=== PATIENT | male | born 1975 | race Caucasian/White ===

== ENCOUNTER 2020-10-07 13:13 | Emergency (ER) | payer OTHER, SELFPAY ==
[2020-10-07] VITALS (9 sets, daily range): BP systolic 90–123; BP diastolic 55–81; PULSE 53–65; RESP 16–27; TEMP 36.5–37.1; O2SAT 88–100
--- NOTE | ~2020-10-07 | CT_ITS ---
EXAMINATION: CT ANGIOGRAM OF THE CHEST WITH AND WITHOUT CONTRAST (CT PULMONARY ANGIOGRAM FOR PE) CLINICAL INFORMATION: Reason for Exam sob, elevated dimer, Covid neg COMPARISON: Chest x-ray 10/07/2020. CT chest 05/12/2014 TECHNIQUE: Prior to contrast administration, noncontrast localization images were obtained. Subsequently, multidetector volumetric imaging was performed from the thoracic inlet to below the diaphragms following the administration of 100 mL Omnipaque 350 intravenous contrast. No contrast reaction reported Sagittal, coronal, and MIP oblique sagittal reformatted images were obtained on the CT workstation, uploaded to PACS, and reviewed. This CT examination was performed using dose optimization techniques as appropriate, variously including the following: *Automated exposure control *Adjustment of mA and/or kV according to patient size (this includes techniques or standardized protocols for targeted exams where dose is matched to indication/reason for exam; i.e. extremities or head) *Use of iterative reconstruction technique Total exam dose-length product 325 mGy-cm FINDINGS: QUALITY OF STUDY/CONTRAST BOLUS: Satisfactory. PULMONARY ARTERIES: No central or segmental pulmonary emboli. THORACIC AORTA: No aneurysm or dissection. LUNG: There is bibasilar consolidation with air bronchograms. There are scattered multifocal groundglass and ill-defined alveolar opacities in both lungs in the middle lobe, lingula and upper lobes. Most of the airspace disease is in the lower lobes however. There are multiple calcified and partially calcified nodules in the right upper lobe which are chronic unchanged since CAT scan 05/22/2014. Largest of these is an irregular nodule with faint calcifications measuring 1.3 cm coronal image 56/89. Given the stability since 2014 and the calcification these are benign nodules. PLEURA: No pleural effusion or pneumothorax. MEDIASTINUM: There is mediastinal lymphadenopathy. This is new since 2014. May be reactive to the airspace disease. There are enlarged nodes at the AP window, pretracheal retrovascular space and subcarina measuring up to about 1.5 cm in diameter. The remaining subpleural Normal heart size. No pericardial effusion. . No evidence of septal bowing or right heart strain. CHEST WALL/AXILLA: No axillary or internal mammary lymphadenopathy. OSSEOUS STRUCTURES: No acute or suspicious osseous abnormality. UPPER ABDOMEN: Unremarkable. No reflux of contrast into the hepatic veins to suggest elevated right heart pressures. CT/CT angio chest PE protocol IMPRESSION: 1. No evidence of pulmonary embolism. 2. Multifocal extensive bilateral airspace disease mostly affecting the lower lobes. 3. Multiple benign nodules calcifications lung which have remained unchanged since prior CAT scan 05/12/2014. 4. Mediastinal lymphadenopathy probably reactive to the airspace disease. VTE: negative
--- NOTE | ~2020-10-07 | XR_ITS ---
EXAMINATION: XR CHEST CLINICAL INFORMATION: Dyspnea COMPARISON: 04/12/2019 TECHNIQUE: Frontal view of the chest was obtained. FINDINGS: Cardiac leads overlie the chest. Lung volumes are low. Patchy bilateral airspace opacities are noted. More dense retrocardiac opacity. Small pleural effusions. No pneumothorax. The cardiomediastinal silhouette is within normal limits. XR/XR chest 1V IMPRESSION: Small pleural effusions. Patchy bilateral airspace opacities are nonspecific with more dense retrocardiac opacity. This could be infectious or inflammatory. Edema is less likely.
--- NOTE | 2020-10-07 15:17 | ECG_ITS ---
Test Reason : DYSPNEA Blood Pressure : / mmHG Vent. Rate : 059 BPM Atrial Rate : 059 BPM P-R Int : 148 ms QRS Dur : 106 ms QT Int : 454 ms P-R-T Axes : 022 023 -03 degrees QTc Int : 449 ms Sinus bradycardia Otherwise normal ECG No previous ECGs available Referred By: Generic ED Physician Electronically Signed By:AYDE ARAYA MD
[2020-10-07 15:38] LABS: MANUAL DIFF FLAG NO
[2020-10-07 15:45] LABS: Basophils Percent Auto 0.1 % (0-2); Eosinophils Absolute Auto 0.1 X10*3/uL (0.0-0.4); Eosinophils Percent Auto 0.4 % (0-4); Hematocrit 34.3 % (42-52); Imm Gran Abs Auto 0.07 X10*3/uL (0.00-0.03); Imm Gran Pct Auto 0.6 % (0.0-0.4); Lymphocytes Absolute Auto 2.3 X10*3/uL (1.2-4.9); Lymphocytes Percent Auto 19.3 % (20-40); Mean Corpuscular HGB Conc 32.1 g/dl (31.0-36.0); Mean Corpuscular Hemoglobin 30.3 pg (27.0-33.0); Mean Corpuscular Volume 94.5 fL (80-98); Mean Platelet Volume 10.6 fL (9.4-12.4); Monocytes Absolute Auto 0.6 X10*3/uL (0.1-1.2); Monocytes Percent Auto 5.3 % (2-11); Neutrophils Absolute Auto 8.9 X10*3/uL (2.0-8.3); Neutrophils Percent Auto 74.3 % (45-73); Platelet Count 262 X10*3/uL (160-400); Red Blood Count 3.63 X10*6/uL (4.60-5.80); Red Cell Distribution Width 14.2 % (11.0-16.0)
--- NOTE | 2020-10-07 15:45 | PC.NURSE ---
pt in stretcher, sleeping but easily arousable, diaphoretic, respirations even and unlabored. pt reports feeling sob for a couple of days, ls clear, sating at 97% on 2l. poc obtained at 111. 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
[2020-10-07 16:02] LABS: Lactic Acid 0.9 mmol/L (0.5-2.0)
[2020-10-07 16:05] LABS: Alanine Aminotransferase 47 U/L (0-40); Albumin Level 4.1 g/dL (3.5-5.0); Alkaline Phosphatase 53 U/L (39-117); Anion Gap 15 (12-20); Aspartate Amino Transferase 34 U/L (5-37); Bilirubin Direct 0.2 mg/dL (0.0-0.5); Bilirubin Total 0.4 mg/dL (0.0-1.0); Blood Urea Nitrogen 15 mg/dL (9-16); Calcium 8.4 mg/dL (8.4-10.2); Carbon Dioxide 27 mmol/L (22-29); Chloride 100 mmol/L (96-108); Creatinine Clr Calc Pharmacy 5.1; Estimated Glomerular Filt Rate 42; Glucose Random 102 mg/dL (60-115); Lipase 8 U/L (8-78); Potassium 4.7 mmol/L (3.3-5.1); Sodium 137 mmol/L (135-145); Total Protein 6.7 g/dL (6.5-8.0)
[2020-10-07 16:09] LABS: B Type Natriuretic Peptide 19 pg/mL (<100); Troponin-I High Sensitivity < 3.5 ng/L (<3.5-35.0)
[2020-10-07 16:25] LABS: Procalcitonin 1.43 ng/mL
--- NOTE | 2020-10-07 16:46 | ED_ITS ---
HPI - URI/Sore Throat General Chief Complaint: Upper Respiratory Symptoms Stated Complaint: DIFF BREATHING Time Seen by Provider: 10/07/20 16:32 Source: patient Mode of arrival: ambulatory Limitations: no limitations History of Present Illness HPI Narrative: Patient comes emergency room complaining of cough and shortness of breath for 5 days. Patient states he feels that he have a lot of phlegm, has been taking Mucinex at home with no relief. At night when he is lying down, patient states that the phlegm accumulates and wakes up short of breath coughing and triggers a panic attack. Patient states he lives with his father, he is not sick, no COVID exposures. Patient reports subjective fever, complaining of chills, generalized malaise. Patient denies nausea vomiting or diarrhea. MD elicited complaint: fever and cough Related Data Previous Rx's Medication Instructions Recorded levofloxacin 750 mg PO DAILY #10 tab 10/08/20 Allergies Allergy/AdvReac Type Severity Reaction Status Date / Time aspirin [ASA] AdvReac Mild NAUSEA Unverified 03/25/20 15:09 aspirin Allergy Unknown Uncoded 03/27/17 00:00 Review of Systems Review of Systems: Constitutional : No Weight loss, complaining of subjective fever, chills, complaining of generalized malaise ENT/Mouth : No Hearing loss, No Ear Pain, No Nasal Congestion, No Sinus Pain, No Hoarseness, No sore throat, No Rhinorrhea, No Swallowing Difficulty Eyes: No Eye Pain, No Swelling, No Redness, No Foreign Body, No Discharge, No Vision Changes Cardiovascular : No Chest Pain, No Palpitations Respiratory : Complaining of cough with phlegm, No Wheezing, No Smoke Exposure, occasional shortness of breath with exertion, cough and shortness of breath triggered by phlegm when lying flat at night. Gastrointestinal : No Nausea, No Vomiting, No Diarrhea, No Constipation, No abdominal Pain, No Hematochezia, No Melena Genitourinary : no irregular bleeding, No Dysuria, No Urinary Frequency, No Hematuria, No Urinary Incontinence, No Urgency, No Flank Pain, No Urinary Flow Changes, No Hesitancy Musculoskeletal : No joint pain, No Myalgias, No Joint Swelling Skin : No Skin Lesions, No rash Neuro : No Weakness, No Numbness, No Paresthesias, No Loss of Consciousness, No Dizziness, No Headache Psych : No Anxiety/Panic, No Depression, No SI/HI/AH/VH, No Social Issues, Heme/Lymph: No Bruising, No Bleeding,No Lymphadenopathy Endocrine : No Polyuria, No Polydipsia, No Temperature Intolerance [facility] Past Medical History Medical History Hypoglycemia Substance abuse Surgical History History of tonsillectomy Hx of appendectomy Previous back surgery Social History Social History Smoking Status: Current every day smoker Use of substances other than those prescribed or required for medical reasons: No Advance Directives: No Advance Directives Information Provided: Yes Physical Exam Vital Signs: Vital Signs: Last Vital Signs Temp 97.7 F 10/07/20 20:01 Pulse 57 10/07/20 22:36 Resp 16 10/07/20 22:36 BP 105/58 L 10/07/20 22:36 Pulse Ox 97 10/07/20 22:36 Body Mass Index 2.0 Appearance: Alert. Oriented X3. No acute distress. Eyes: Pupils equal, round and reactive to light. ENT: Pharynx normal. Neck: Normal inspection. Neck supple. No lymph nodes noted. No crepitus CVS: Normal heart rate and rhythm. Pulses normal. Normal S1 and S2 Respiratory: No respiratory distress. Mild bilateral crackles, no wheezing, no rales, oxygen saturation 97% on room air (O2 discontinued) Abdomen: Soft and nontender. No rigidity. No distention. good BS x4 Skin: Skin warm , mildly clammy Extremities: No lower extremity edema. No lower extremity edema. No Lacerations. No Rash Neuro: Oriented X 3. No motor deficit. No sensory deficit. Moving all extermities. No slurred speech. Course Course Course Narrative: By time that I saw the patient, some labs had already resolved and the chest x-ray. Given the patient's symptoms, we will go ahead and start treating for possible pneumonia. D-dimer was elevated, patient was sent for a CT for PE protocol. Results were negative. However, on the CT scan it was noted that the patient has extensive m ultifocal bilateral airspace disease. Patient was walked around the hallway, his oxygen saturation remained 92% and above. COVID test negative. Sepsis is not suspect this time. I discussed with the patient the extent of his pulmonary condition. I asked patient to stay, I also spoke to our hospitalist Dr. Mercado who accepted the patient to the hospitalist inpatient service. Patient is refusing to stay. Overall, patient is stable enough to go home, but it is very likely that patient may decompensate. Therefore, I discussed with the patient that he would be better to keep in the hospital. Patient refused, but he is agreeable to return to the hospital if he has any worsening symptoms. In the hospital, patient received IV fluids and Levaquin. I discussed with the patient that although his COVID test was negative, this could still be COVID. Discussed with the patient to be retested before returning to work. MDM - URI/Sore Throat Lab Data Result diagrams: 10/07/20 15:26 10/07/20 20:00 Labs: Lab Results 10/07/20 10/07/20 10/07/20 Range/Units 15:12 15:26 15:26 WBC 12.0 H (4.8-10.8) X10*3/uL RBC 3.63 L (4.60-5.80) X10*6/uL Hgb 11.0 L (14.0-18.0) g/dl Hct 34.3 L (42-52) % MCV 94.5 (80-98) fL MCH 30.3 (27.0-33.0) pg MCHC 32.1 (31.0-36.0) g/dl RDW 14.2 (11.0-16.0) % Plt Count 262 (160-400) X10*3/uL MPV 10.6 (9.4-12.4) fL Immature Gran % (Auto) 0.6 H (0.0-0.4) % Neut % (Auto) 74.3 H (45-73) % Lymph % (Auto) 19.3 L (20-40) % [place] % (Auto) 5.3 (2-11) % Eos % (Auto) 0.4 (0-4) % Baso % (Auto) 0.1 (0-2) % Lymph # (Auto) 2.3 (1.2-4.9) X10*3/uL [place] # (Auto) 0.6 (0.1-1.2) X10*3/uL Eos # (Auto) 0.1 (0.0-0.4) X10*3/uL Baso # (Auto) 0.0 (0.0-0.2) X10*3/uL Abs Immat Gran (auto) 0.07 H (0.00-0.03) X10*3/uL Absolute Neuts (auto) 8.9 H (2.0-8.3) X10*3/uL Absolute Nucleated RBC 0.000 (0.0-0.012) X10*3/uL Nucleated RBC % (auto) 0.0 (0.0-0.2) /100WBC D-Dimer NG/ML Hold Blue Top SEE NOTE Sodium (135-145) mmol/L Potassium (3.3-5.1) mmol/L Chloride (96-108) mmol/L Carbon Dioxide (22-29) mmol/L Anion Gap (12-20) BUN (9-16) mg/dL Creatinine (0.5-1.4) mg/dL Estim Creat Clear Calc Estimated GFR POC Glucose 111 (60-115) mg/dL Random Glucose (60-115) mg/dL Lactic Acid (0.5-2.0) mmol/L Calcium (8.4-10.2) mg/dL Total Bilirubin (0.0-1.0) mg/dL Direct Bilirubin (0.0-0.5) mg/dL AST (5-37) U/L ALT (0-40) U/L Alkaline Phosphatase (39-117) U/L Troponin I High Sens (<3.5-35.0) ng/L B-Natriuretic Peptide (<100) pg/mL Total Protein (6.5-8.0) g/dL Albumin (3.5-5.0) g/dL Lipase (8-78) U/L Procalcitonin ng/mL Urine Color Urine Appearance Urine pH (5.0-8.0) Ur Specific [place] (1.005-1.025) Urine Protein (NEG-TRACE) MG/DL Urine Glucose (UA) (NEG) MG/DL Urine Ketones (NEG) MG/DL Urine Blood (NEG) Urine Nitrite (NEG) Ur Leukocyte Esterase (NEG) Urine RBC (0) /HPF Urine WBC (0-4) /HPF Ur Squamous Epith Cells /LPF Urine Bacteria /LPF Urine Mucus /LPF Urine Opiates Screen (Not Detect) Ur Barbiturates Screen (Not Detect) Ur Phencyclidine Scrn (Not Detect) Ur Amphetamines Screen (Not Detect) U Benzodiazepines Scrn (Not Detect) Urine Cocaine Screen (Not Detect) U Marijuana (THC) Screen (Not Detect) Coronavirus (PCR) (Negative) Influenza Type A (PCR) (Negative) Influenza Type B (PCR) (Negative) RSV RNA Qual (PCR) (Negative) 10/07/20 10/07/20 10/07/20 Range/Units 15:26 15:26 15:26 WBC (4.8-10.8) X10*3/uL RBC (4.60-5.80) X10*6/uL Hgb (14.0-18.0) g/dl Hct (42-52) % MCV (80-98) fL MCH (27.0-33.0) pg MCHC (31.0-36.0) g/dl RDW (11.0-16.0) % Plt Count (160-400) X10*3/uL MPV (9.4-12.4) fL Immature Gran % (Auto) (0.0-0.4) % Neut % (Auto) (45-73) % Lymph % (Auto) (20-40) % [place] % (Auto) (2-11) % Eos % (Auto) (0-4) % Baso % (Auto) (0-2) % Lymph # (Auto) (1.2-4.9) X10*3/uL [place] # (Auto) (0.1-1.2) X10*3/uL Eos # (Auto) (0.0-0.4) X10*3/uL Baso # (Auto) (0.0-0.2) X10*3/uL Abs Immat Gran (auto) (0.00-0.03) X10*3/uL Absolute Neuts (auto) (2.0-8.3) X10*3/uL Absolute Nucleated RBC (0.0-0.012) X10*3/uL Nucleated RBC % (auto) (0.0-0.2) /100WBC D-Dimer NG/ML Hold Blue Top Sodium 137 (135-145) mmol/L Potassium 4.7 (3.3-5.1) mmol/L Chloride 100 (96-108) mmol/L Carbon Dioxide 27 (22-29) mmol/L Anion Gap 15 (12-20) BUN 15 (9-16) mg/dL Creatinine 1.80 H (0.5-1.4) mg/dL Estim Creat Clear Calc 5.1 Estimated GFR 42 POC Glucose (60-115) mg/dL Random Glucose 102 (60-115) mg/dL Lactic Acid (0.5-2.0) mmol/L Calcium 8.4 (8.4-10.2) mg/dL Total Bilirubin 0.4 (0.0-1.0) mg/dL Direct Bilirubin 0.2 (0.0-0.5) mg/dL AST 34 (5-37) U/L ALT 47 H (0-40) U/L Alkaline Phosphatase 53 (39-117) U/L Troponin I High Sens < 3.5 (<3.5-35.0) ng/L B-Natriuretic Peptide 19 (<100) pg/mL Total Protein 6.7 (6.5-8.0) g/dL Albumin 4.1 (3.5-5.0) g/dL Lipase 8 (8-78) U/L Procalcitonin 1.43 ng/mL Urine Color Urine Appearance Urine pH (5.0-8.0) Ur Specific [place] (1.005-1.025) Urine Protein (NEG-TRACE) MG/DL Urine Glucose (UA) (NEG) MG/DL Urine Ketones (NEG) MG/DL Urine Blood (NEG) Urine Nitrite (NEG) Ur Leukocyte Esterase (NEG) Urine RBC (0) /HPF Urine WBC (0-4) /HPF Ur Squamous Epith Cells /LPF Urine Bacteria /LPF Urine Mucus /LPF Urine Opiates Screen (Not Detect) Ur Barbiturates Screen (Not Detect) Ur Phencyclidine Scrn (Not Detect) Ur Amphetamines Screen (Not Detect) U Benzodiazepines Scrn (Not Detect) Urine Cocaine Screen (Not Detect) U Marijuana (THC) Screen (Not Detect) Coronavirus (PCR) (Negative) Influenza Type A (PCR) (Negative) Influenza Type B (PCR) (Negative) RSV RNA Qual (PCR) (Negative) 10/07/20 10/07/20 10/07/20 Range/Units 15:26 15:26 16:55 WBC (4.8-10.8) X10*3/uL RBC (4.60-5.80) X10*6/uL Hgb (14.0-18.0) g/dl Hct (42-52) % MCV (80-98) fL MCH (27.0-33.0) pg MCHC (31.0-36.0) g/dl RDW (11.0-16.0) % Plt Count (160-400) X10*3/uL MPV (9.4-12.4) fL Immature Gran % (Auto) (0.0-0.4) % Neut % (Auto) (45-73) % Lymph % (Auto) (20-40) % [place] % (Auto) (2-11) % Eos % (Auto) (0-4) % Baso % (Auto) (0-2) % Lymph # (Auto) (1.2-4.9) X10*3/uL [place] # (Auto) (0.1-1.2) X10*3/uL Eos # (Auto) (0.0-0.4) X10*3/uL Baso # (Auto) (0.0-0.2) X10*3/uL Abs Immat Gran (auto) (0.00-0.03) X10*3/uL Absolute Neuts (auto) (2.0-8.3) X10*3/uL Absolute Nucleated RBC (0.0-0.012) X10*3/uL Nucleated RBC % (auto) (0.0-0.2) /100WBC D-Dimer 709 NG/ML Hold Blue Top Sodium (135-145) mmol/L Potassium (3.3-5.1) mmol/L Chloride (96-108) mmol/L Carbon Dioxide (22-29) mmol/L Anion Gap (12-20) BUN (9-16) mg/dL Creatinine (0.5-1.4) mg/dL Estim Creat Clear Calc Estimated GFR POC Glucose (60-115) mg/dL Random Glucose (60-115) mg/dL Lactic Acid 0.9 (0.5-2.0) mmol/L Calcium (8.4-10.2) mg/dL Total Bilirubin (0.0-1.0) mg/dL Direct Bilirubin (0.0-0.5) mg/dL AST (5-37) U/L ALT (0-40) U/L Alkaline Phosphatase (39-117) U/L Troponin I High Sens (<3.5-35.0) ng/L B-Natriuretic Peptide (<100) pg/mL Total Protein (6.5-8.0) g/dL Albumin (3.5-5.0) g/dL Lipase (8-78) U/L Procalcitonin ng/mL Urine Color Urine Appearance Urine pH (5.0-8.0) Ur Specific [place] (1.005-1.025) Urine Protein (NEG-TRACE) MG/DL Urine Glucose (UA) (NEG) MG/DL Urine Ketones (NEG) MG/DL Urine Blood (NEG) Urine Nitrite (NEG) Ur Leukocyte Esterase (NEG) Urine RBC (0) /HPF Urine WBC (0-4) /HPF Ur Squamous Epith Cells /LPF Urine Bacteria /LPF Urine Mucus /LPF Urine Opiates Screen (Not Detect) Ur Barbiturates Screen (Not Detect) Ur Phencyclidine Scrn (Not Detect) Ur Amphetamines Screen (Not Detect) U Benzodiazepines Scrn (Not Detect) Urine Cocaine Screen (Not Detect) U Marijuana (THC) Screen (Not Detect) Coronavirus (PCR) NEGATIVE (Negative) Influenza Type A (PCR) NEGATIVE (Negative) Influenza Type B (PCR) NEGATIVE (Negative) RSV RNA Qual (PCR) NEGATIVE (Negative) 10/07/20 10/07/20 10/07/20 Range/Units 20:00 20:00 20:00 WBC (4.8-10.8) X10*3/uL RBC (4.60-5.80) X10*6/uL Hgb (14.0-18.0) g/dl Hct (42-52) % MCV (80-98) fL MCH (27.0-33.0) pg MCHC (31.0-36.0) g/dl RDW (11.0-16.0) % Plt Count (160-400) X10*3/uL MPV (9.4-12.4) fL Immature Gran % (Auto) (0.0-0.4) % Neut % (Auto) (45-73) % Lymph % (Auto) (20-40) % [place] % (Auto) (2-11) % Eos % (Auto) (0-4) % Baso % (Auto) (0-2) % Lymph # (Auto) (1.2-4.9) X10*3/uL [place] # (Auto) (0.1-1.2) X10*3/uL Eos # (Auto) (0.0-0.4) X10*3/uL Baso # (Auto) (0.0-0.2) X10*3/uL Abs Immat Gran (auto) (0.00-0.03) X10*3/uL Absolute Neuts (auto) (2.0-8.3) X10*3/uL Absolute Nucleated RBC (0.0-0.012) X10*3/uL Nucleated RBC % (auto) (0.0-0.2) /100WBC D-Dimer NG/ML Hold Blue Top Sodium 138 (135-145) mmol/L Potassium 4.5 (3.3-5.1) mmol/L Chloride 105 (96-108) mmol/L Carbon Dioxide 25 (22-29) mmol/L Anion Gap 13 (12-20) BUN 14 (9-16) mg/dL Creatinine 1.18 (0.5-1.4) mg/dL Estim Creat Clear Calc 7.8 Estimated GFR > 60 POC Glucose (60-115) mg/dL Random Glucose 89 (60-115) mg/dL Lactic Acid (0.5-2.0) mmol/L Calcium 7.3 L D (8.4-10.2) mg/dL Total Bilirubin (0.0-1.0) mg/dL Direct Bilirubin (0.0-0.5) mg/dL AST (5-37) U/L ALT (0-40) U/L Alkaline Phosphatase (39-117) U/L Troponin I High Sens (<3.5-35.0) ng/L B-Natriuretic Peptide (<100) pg/mL Total Protein (6.5-8.0) g/dL Albumin (3.5-5.0) g/dL Lipase (8-78) U/L Procalcitonin ng/mL Urine Color YELLOW Urine Appearance HAZY Urine pH 6.0 (5.0-8.0) Ur Specific [place] >= 1.030 H (1.005-1.025) Urine Protein TRACE (NEG-TRACE) MG/DL Urine Glucose (UA) NEG (NEG) MG/DL Urine Ketones NEG (NEG) MG/DL Urine Blood 1+ H (NEG) Urine Nitrite NEG (NEG) Ur Leukocyte Esterase NEG (NEG) Urine RBC 1-4 (0) /HPF Urine WBC 0 (0-4) /HPF Ur Squamous Epith Cells 1+ /LPF Urine Bacteria TRACE /LPF Urine Mucus 1+ /LPF Urine Opiates Screen Not Detected (Not Detect) Ur Barbiturates Screen Not Detected (Not Detect) Ur Phencyclidine Scrn Not Detected (Not Detect) Ur Amphetamines Screen Not Detected (Not Detect) U Benzodiazepines Scrn POSITIVE H (Not Detect) Urine Cocaine Screen Not Detected (Not Detect) U Marijuana (THC) Screen Not Detected (Not Detect) Coronavirus (PCR) (Negative) Influenza Type A (PCR) (Negative) Influenza Type B (PCR) (Negative) RSV RNA Qual (PCR) (Negative) 10/07/20 Range/Units 22:31 WBC (4.8-10.8) X10*3/uL RBC (4.60-5.80) X10*6/uL Hgb (14.0-18.0) g/dl Hct (42-52) % MCV (80-98) fL MCH (27.0-33.0) pg MCHC (31.0-36.0) g/dl RDW (11.0-16.0) % Plt Count (160-400) X10*3/uL MPV (9.4-12.4) fL Immature Gran % (Auto) (0.0-0.4) % Neut % (Auto) (45-73) % Lymph % (Auto) (20-40) % [place] % (Auto) (2-11) % Eos % (Auto) (0-4) % Baso % (Auto) (0-2) % Lymph # (Auto) (1.2-4.9) X10*3/uL [place] # (Auto) (0.1-1.2) X10*3/uL Eos # (Auto) (0.0-0.4) X10*3/uL Baso # (Auto) (0.0-0.2) X10*3/uL Abs Immat Gran (auto) (0.00-0.03) X10*3/uL Absolute Neuts (auto) (2.0-8.3) X10*3/uL Absolute Nucleated RBC (0.0-0.012) X10*3/uL Nucleated RBC % (auto) (0.0-0.2) /100WBC D-Dimer NG/ML Hold Blue Top Sodium (135-145) mmol/L Potassium (3.3-5.1) mmol/L Chloride (96-108) mmol/L Carbon Dioxide (22-29) mmol/L Anion Gap (12-20) BUN (9-16) mg/dL Creatinine (0.5-1.4) mg/dL Estim Creat Clear Calc Estimated GFR POC Glucose (60-115) mg/dL Random Glucose (60-115) mg/dL Lactic Acid 1.0 (0.5-2.0) mmol/L Calcium (8.4-10.2) mg/dL Total Bilirubin (0.0-1.0) mg/dL Direct Bilirubin (0.0-0.5) mg/dL AST (5-37) U/L ALT (0-40) U/L Alkaline Phosphatase (39-117) U/L Troponin I High Sens (<3.5-35.0) ng/L B-Natriuretic Peptide (<100) pg/mL Total Protein (6.5-8.0) g/dL Albumin (3.5-5.0) g/dL Lipase (8-78) U/L Procalcitonin ng/mL Urine Color Urine Appearance Urine pH (5.0-8.0) Ur Specific [place] (1.005-1.025) Urine Protein (NEG-TRACE) MG/DL Urine Glucose (UA) (NEG) MG/DL Urine Ketones (NEG) MG/DL Urine Blood (NEG) Urine Nitrite (NEG) Ur Leukocyte Esterase (NEG) Urine RBC (0) /HPF Urine WBC (0-4) /HPF Ur Squamous Epith Cells /LPF Urine Bacteria /LPF Urine Mucus /LPF Urine Opiates Screen (Not Detect) Ur Barbiturates Screen (Not Detect) Ur Phencyclidine Scrn (Not Detect) Ur Amphetamines Screen (Not Detect) U Benzodiazepines Scrn (Not Detect) Urine Cocaine Screen (Not Detect) U Marijuana (THC) Screen (Not Detect) Coronavirus (PCR) (Negative) Influenza Type A (PCR) (Negative) Influenza Type B (PCR) (Negative) RSV RNA Qual (PCR) (Negative) Imaging Data Chest x-ray: Radiologist's impression: Cardiac leads overlie the chest. Lung volumes are low. Patchy bilateral airspace opacities are noted. More dense retrocardiac opacity. Small pleural effusions. No pneumothorax. The cardiomediastinal silhouette is within normal limits. XR/XR chest 1V IMPRESSION: Small pleural effusions. Patchy bilateral airspace opacities are nonspecific with more dense retrocardiac opacity. This could be infectious or inflammatory. Edema is less likely. Chest CT for PE: Radiologist's impression: FINDINGS: QUALITY OF STUDY/CONTRAST BOLUS: Satisfactory. PULMONARY ARTERIES: No central or segmental pulmonary emboli. THORACIC AORTA: No aneurysm or dissection. LUNG: There is bibasilar consolidation with air bronchograms. There are scattered multifocal groundglass and ill-defined alveolar opacities in both lungs in the middle lobe, lingula and upper lobes. Most of the airspace disease is in the lower lobes however. There are multiple calcified and partially calcified nodules in the right upper lobe which are chronic unchanged since CAT scan 05/22/2014. Largest of these is an irregular nodule with faint calcifications measuring 1.3 cm coronal image 56/89. Given the stability since 2013 and the calcification these are benign nodules. PLEURA: No pleural effusion or pneumothorax. MEDIASTINUM: There is mediastinal lymphadenopathy. This is new since 2014. May be reactive to the airspace disease. There are enlarged nodes at the AP window, pretracheal retrovascular space and subcarina measuring up to about 1.5 cm in diameter. The remaining subpleural Normal heart size. No pericardial effusion. . No evidence of septal bowing or right heart strain. CHEST WALL/AXILLA: No axillary or internal mammary lymphadenopathy. OSSEOUS STRUCTURES: No acute or suspicious osseous abnormality. UPPER ABDOMEN: Unremarkable. No reflux of contrast into the hepatic veins to suggest elevated right heart pressures. CT/CT angio chest PE protocol IMPRESSION: 1. No evidence of pulmonary embolism. 2. Multifocal extensive bilateral airspace disease mostly affecting the lower lobes. 3. Multiple benign nodules calcifications lung which have remained unchanged since prior CAT scan 05/12/2014. 4. Mediastinal lymphadenopathy probably reactive to the airspace disease. VTE: negative ECG Data Attestation: I personally reviewed and interpreted this ECG as follows: (Sinus bradycardia, heart rate 59, no ST segment depression or elevation, nonspecific T-wave inversion in lead 3, lead V3 and V4) Discharge Plan Discharge Clinical Impression: Bilateral pneumonia Qualifiers: Pneumonia type: due to unspecified organism Lung location: unspecified part of lung Qualified Code(s): J18.9 - Pneumonia, unspecified organism Patient Disposition: Home, Self-Care Instructions: Pneumonia (ED) Additional Instructions: You have extensive lung disease/pneumonia, and refused to be hospitalized. If you have any worsening symptoms, please return to the emergency room. Your test for COVID-19 was negative, however it is possible that you may have COVID-19. Please get retested before returning to work. Please follow-up with your primary care physician tomorrow. If you have any worsening or new symptoms, please return to the emergency room or call 911 Prescriptions: New levofloxacin 750 mg tablet 750 mg PO DAILY Qty: 10 RF: 0
[2020-10-07 17:04] LABS: D Dimer 709 NG/ML
[2020-10-07] MEDS: 0.9 % Sodium Chloride 1,000 ML 999 ML IVCONT ×2 (17:35→18:39)
[2020-10-07] MEDS: levoFLOXacin/D5W 500 MG/100 ML PIGGYBACK 100 MG IV (17:35)
[2020-10-07 17:43] LABS: Influenza A PCR NEGATIVE (Negative); Influenza B PCR NEGATIVE (Negative); Resp Syncy Virus RNA Qual PCR NEGATIVE (Negative); SARS COV2 PCR INHOUSE NEGATIVE (Negative)
[2020-10-07] MEDS: 0.9 % Sodium Chloride 500 ML 999 ML IVCONT (19:46)
[2020-10-07 20:16] LABS: Glucose Urine UA NEG (NEG); Leukocyte Esterase Urine NEG (NEG); Nitrite Urine NEG (NEG); Specific Gravity - Urine >= 1.030 (1.005-1.025); Urine Blood 1+ (NEG); Urine Ketones NEG (NEG); Urine Protein TRACE MG/DL (NEG-TRACE)
[2020-10-07 20:17] LABS: Appearance Urine HAZY; Color Urine YELLOW
[2020-10-07 20:24] LABS: Bacteria Urine TRACE /LPF; Mucus Urine 1+ /LPF; Squamous Epithelial Cell Urine 1+ /LPF; WBC Urine 0 /HPF (0-4)
[2020-10-07 20:47] LABS: Anion Gap 13 (12-20); Blood Urea Nitrogen 14 mg/dL (9-16); Calcium 7.3 mg/dL (8.4-10.2); Carbon Dioxide 25 mmol/L (22-29); Chloride 105 mmol/L (96-108); Creatinine Clr Calc Pharmacy 7.8; Estimated Glomerular Filt Rate > 60; Glucose Random 89 mg/dL (60-115); Potassium 4.5 mmol/L (3.3-5.1); Sodium 138 mmol/L (135-145)
[2020-10-07 20:48] LABS: Amphetamine Screen Urine Not Detected (Not Detect); Benzodiazepines Screen Urine POSITIVE (Not Detect); Cannabinoid Screen Urine Not Detected (Not Detect); Opiate Screen Urine Not Detected (Not Detect); Phencyclidine Screen Urine Not Detected (Not Detect)
[2020-10-07 20:50] LABS: Barbiturates, Urine Not Detected (Not Detect); Cocaine Screen Urine Not Detected (Not Detect)
--- NOTE | 2020-10-07 21:09 | PC.NURSE ---
PT TO ROOM WITH C/O CHEST TIGHT WHILE BREATHING. PT MOVED FROM ROOM #2. FAMILY WITH PT AT BEDSIDE. VS OBTAINED. PT IN NAD AT THIS TIME.
--- NOTE | 2020-10-07 22:37 | PC.NURSE ---
labs drawn to lab.
--- NOTE | 2020-10-07 22:38 | PC.NURSE ---
PT SLEEPING DENIES ANY COMPLAINTS AT THIS TIME. PT DENIES ANY CHEST DISCOMFORT OR PAIN AT THIS TIME.
[2020-10-07 22:44] LABS: Glucose, Whole Blood 111 mg/dL (60-115)
--- NOTE | 2020-10-08 00:27 | PC.NURSE ---
PT AMBULATED WITH PO 92-93% DR. JACKSON AWARE.
--- NOTE | 2020-10-08 00:28 | PC.NURSE ---
PT REFUSED ATIVAN FOR CT.
== END 2020-10-08 01:01 | disposition home or self-care (01) ==
PROVIDERS: Emergency Provider Emergency Medicine; PCP Nurse Practitioner Family
DX: J18.9 Pneumonia, unspecified organism (principal); Z20.822 Contact with and (suspected) exposure to COVID-19; R00.1 Bradycardia, unspecified; F13.10 Sedative, hypnotic or anxiolytic abuse, uncomplicated; F17.200 Nicotine dependence, unspecified, uncomplicated
CPT/HCPCS: 0241U; 36415; 71045; 71275; 80048; 80076; 80307; 81001; 82947; 83605; 83690; 83880; 84145; 84484; 85025; 85379; 87040; 93005; 96361; 96365; 96374; 99285; J1956; Q9967

== ENCOUNTER 2020-11-09 14:23 | Outpatient (REF) | payer OTHER, SELFPAY ==
[2020-11-09 15:24] LABS: COVID-19 Test Negative (Negative)
== END 2020-11-09 14:24 | disposition home or self-care (01) ==
LOC: HO.LAB 14:23
PROVIDERS: Visit Provider Internal Medicine
DX: Z20.822 Contact with and (suspected) exposure to COVID-19 (principal)
CPT/HCPCS: 36415; 87635; C9803

== ENCOUNTER 2021-09-01 14:40 | Outpatient (REF) | payer OTHER, SELFPAY ==
--- NOTE | ~2021-09-01 | US_ITS ---
EXAMINATION: ULTRASOUND RIGHT LOWER EXTREMITY NONVASCULAR CLINICAL INFORMATION: Increasing mass right thigh. Alcoholic denies any IM injections. COMPARISON: None TECHNIQUE: Limited imaging to the right anterior thigh was performed the patient has swelling and mild tenderness as well as redness. FINDINGS: There is a large fluctuant echogenic mass or echogenic fluid collection in the anterior right superficial compartment of the thigh likely hematoma. An abscess would have a similar appearance. However there is no increased vascularity in this area to suspect a definite abscess. Patient apparently has a history of a known trauma hence this could represent a hematoma. Correlation with lab test for white blood count , hemoglobin and hematocrit should be performed. US/US extremity nonvascular IMPRESSION: Large fluctuant echogenic mass in the right anterior superficial compartment of the thigh. Likely hematoma or abscess. Correlate with lab results for hemoglobin, hematocrit and white count. After lab results a simple ultrasound-guided needle aspiration of this area can be performed to confirm findings.
== END 2021-09-01 14:41 | disposition home or self-care (01) ==
LOC: HO.US 14:40
PROVIDERS: PCP Registered Nurse; Visit Provider Registered Nurse
DX: R22.41 Localized swelling, mass and lump, right lower limb (principal)
CPT/HCPCS: 76882

== ENCOUNTER 2022-02-16 12:35 | Emergency (ER) | payer OTHER, SELFPAY | END 2022-02-16 14:35 | disposition left against medical advice (07) | PROVIDERS: Emergency Provider Emergency Medicine; PCP Nurse Practitioner Family | DX: Z76.0 Encounter for issue of repeat prescription (principal) ==

== ENCOUNTER 2022-02-16 14:42 | Emergency (ER) | payer OTHER, SELFPAY ==
[2022-02-16 14:50] VITALS: BP 168/100; PULSE 87; RESP 18; TEMP 36.8; O2SAT 97; BMI 31.1
--- NOTE | 2022-02-16 17:34 | ED.MEDCLEAR ---
HPI - Medical Clearance General Chief complaint: Medical Clearance Stated complaint: MED REFILL Time Seen by Provider: 02/16/22 16:34 Source: patient Mode of arrival: ambulatory Limitations: no limitations History of Present Illness HPI Narrative: this is a 46 years old patient presented to emergency room complaining of insomnia ,he states that he has been unable to sleep. He denies SI and HI he states that he ran out of the Seroquel and lorazepam Onset (ago): day(s) (2) Compliant with Home Medications: Yes Associated Symptoms: denies other symptoms Related Information Previous Rx's Medication Instructions Recorded levofloxacin 750 mg tablet 750 mg PO DAILY #10 tabs 10/08/20 lorazepam 1 mg tablet 1 mg PO BEDTIME PRN imsomnia #2 02/16/22 tabs quetiapine 50 mg tablet,extended 50 mg PO BEDTIME #7 tabs 02/16/22 release 24 hr (Seroquel XR) Allergies Allergy/AdvReac Type Severity Reaction Status Date / Time aspirin [ASA] AdvReac Mild NAUSEA Unverified 03/25/20 15:09 aspirin Allergy Unknown Uncoded 03/27/17 00:00 Review of Systems Review of Systems: Yes all other systems are reviewed and are negative Constitutional: Constitutional: Reports no additional constitutional complaints ENT: Reports system reviewed and no additional complaints, except as documented Cardiovascular: Cardiovascular: Reports no additional cardiovascular complaints Respiratory: Respiratory: Reports no additional respiratory complaints Endocrine: Endocrine: Reports no additional endocrine complaints [facility] Past Medical History Medical History Hypoglycemia Substance abuse Surgical History History of tonsillectomy Hx of appendectomy Previous back surgery Social History Social History Advance Directives: No Advance Directives Information Provided: No Physical Exam Vital Signs: Vital Signs: Last Vital Signs Temp 98.2 F 02/16/22 14:50 Pulse 87 02/16/22 14:50 Resp 18 02/16/22 14:50 BP 168/100 H 02/16/22 14:50 Pulse Ox 97 02/16/22 14:50 O2 Del Method 02/16/22 14:50 BMI result Body Mass Index 31.1 Const: General: cooperative, healthy appearing and comfortable Nutritional Appearance: average body habitus and well nourished Orientation/consciousness: patient oriented x3 HEENT: Head: Yes normal to inspection Ears: hearing grossly normal bilaterally General nose exam: Normal external nose present Face and sinus: Yes normal facial exam Mouth: Normal oral and palatal mucosa present Throat: Yes posterior oropharynx normal Neck: Neck: Yes normal visual inspection Chest: Chest palpation & inspection: normal inspection of the chest Resp: Effort & Inspection: normal respiratory effort and able to speak in complete sentences Auscultation: clear to auscultation bilaterally Cardio: Jugular venous distension: no JVD Rate: regular rate GI: Inspection: Yes normal to inspection Palpation (GI): Soft to palpation, not firm and nontender Auscultation: normal bowel sounds Skin: General skin exam: no rashes or lesions noted, elasticity normal and turgor normal Rashes: no rashes Neuro: General: patient oriented x3 Cranial nerves: Yes CN's II-XII intact bilaterally MDM - Medical Clearance MDM Narrative Medical decision making narrative: patient is no suicidal nor homicidal I do not think he needs psychiatric evaluation, I will refill his Seroquel 25 mg I will give 10 tablets. I also will give the patient prescription for 2 tablets oral lorazepam. I think the patient can be discharged home he can follow-up with his own primary care physician and his own psychiatric provider, patient is very comfortable with the plan at this time will discharge him home Discharge Plan Discharge Clinical Impression: Insomnia Patient Disposition: Home, Self-Care Instructions: Insomnia (ED) Additional Instructions: follow-up with you primary care provider return if you worse Prescriptions: New quetiapine [Seroquel XR] 50 mg tablet extended release 24 hr 50 mg PO BEDTIME Qty: 7 0RF lorazepam 1 mg tablet 1 mg PO BEDTIME PRN (Reason: imsomnia) Qty: 2 0RF No Action levofloxacin 750 mg tablet 750 mg PO DAILY Qty: 10 0RF Interventions: ED Discharge Assessment Last Done: 02/16/22 18:21 Discharge Date/Time: 02/16/22 18:22
== END 2022-02-16 18:22 | disposition home or self-care (01) ==
PROVIDERS: Emergency Provider Emergency Medicine; PCP Nurse Practitioner Family
DX: G47.00 Insomnia, unspecified (principal); Z76.0 Encounter for issue of repeat prescription
CPT/HCPCS: 99282; 99283

== ENCOUNTER 2022-07-18 05:38 | Emergency (ER) | payer OTHER, SELFPAY ==
--- NOTE | ~2022-07-18 | XR_ITS ---
EXAMINATION: XR CHEST CLINICAL INFORMATION: Coughing blood COMPARISON: 10/07/2020 TECHNIQUE: Frontal view of the chest was obtained. FINDINGS: The lungs are well expanded. Patchy airspace opacities at the left base. No pleural effusion or pneumothorax. The cardiomediastinal silhouette is within normal limits. No acute osseous abnormality. XR/XR chest 1V IMPRESSION: Patchy left basilar airspace opacities could be infectious or inflammatory. Aspiration possible.
[2022-07-18 05:43] VITALS: BP 130/60; PULSE 57; RESP 16; TEMP 36.4; O2SAT 98; BMI 30.5
[2022-07-18 05:57] VITALS: BP 124/76; PULSE 54; TEMP 36.6; O2SAT 98
[2022-07-18 06:15] LABS: Basophils Percent Auto 0.2 % (0-2); Eosinophils Absolute Auto 0.5 X10*3/uL (0.0-0.4); Eosinophils Percent Auto 2.5 % (0-4); Hematocrit 35.9 % (42.0-52.0); Hemoglobin 12.3 g/dl (14.0-18.0); Imm Gran Abs Auto 0.08 X10*3/uL (0.00-0.03); Imm Gran Pct Auto 0.4 % (0.0-0.4); Lymphocytes Absolute Auto 1.9 X10*3/uL (1.2-4.9); Lymphocytes Percent Auto 10.1 % (20-40); MANUAL DIFF FLAG NO; Mean Corpuscular HGB Conc 34.3 g/dl (31.0-36.0); Mean Corpuscular Hemoglobin 30.5 pg (27.0-33.0); Mean Corpuscular Volume 89.1 fL (80.0-98.0); Mean Platelet Volume 10.8 fL (9.4-12.4); Monocytes Absolute Auto 1.2 X10*3/uL (0.1-1.2); Monocytes Percent Auto 6.6 % (2-11); Neutrophils Absolute Auto 14.8 x10*3/uL (2.0-8.3); Neutrophils Percent Auto 80.2 % (45-73); Platelet Count 195 X10*3/uL (160-400); Red Blood Count 4.03 X10*6/uL (4.60-5.80); Red Cell Distribution Width 13.2 % (11.0-16.0); White Blood Count 18.5 X10*3/uL (4.8-10.8)
[2022-07-18 06:41] LABS: Alanine Aminotransferase 10 U/L (0-40); Albumin Level 3.8 g/dL (3.5-5.0); Alkaline Phosphatase 73 U/L (39-117); Anion Gap 12 (12-20); Aspartate Amino Transferase 13 U/L (5-37); Bilirubin Total 0.5 mg/dL (0.0-1.0); Blood Urea Nitrogen 9 mg/dL (9-16); Carbon Dioxide 25 mmol/L (22-29); Chloride 103 mmol/L (96-108); Creatinine Clr Calc Pharmacy 153.3; Estimated Glomerular Filt Rate > 60; Glucose Random 118 mg/dL (60-115); Potassium 4.3 mmol/L (3.3-5.1); Sodium 136 mmol/L (135-145); Total Protein 5.7 g/dL (6.5-8.0)
[2022-07-18 06:41] LABS: Influenza A PCR NEGATIVE (Negative); Influenza B PCR NEGATIVE (Negative); Resp Syncy Virus RNA Qual PCR NEGATIVE (Negative); SARS COV2 PCR INHOUSE NEGATIVE (Negative)
[2022-07-18 06:57] LABS: Lactic Acid 0.7 mmol/L (0.5-2.0)
--- NOTE | 2022-07-18 07:00 | ED_ITS ---
HPI - General Adult General Chief complaint: General Medical Stated complaint: congestion, spit up blood Time Seen by Provider: 07/18/22 06:41 Source: patient Mode of arrival: ambulatory History of Present Illness HPI narrative: 46-year-old male who is an everyday smoker but denies any other past medical history and denies any use of alcohol or drugs. Patient states for 2 weeks he has had increasing chest tightness and congestion with cough and shortness of breath. Patient states that last night and today he began coughing up blood- tinged sputum but otherwise denies any GI or symptoms. Patient also complaining of bilateral maxillary sinus pain that he is been treating with decongestants. Related Data Previous Rx's Medication Instructions Recorded levofloxacin 750 mg tablet 750 mg PO DAILY #10 tabs 10/08/20 lorazepam 1 mg tablet 1 mg PO BEDTIME PRN imsomnia #2 02/16/22 tabs quetiapine 50 mg tablet,extended 50 mg PO BEDTIME #7 tabs 02/16/22 release 24 hr (Seroquel XR) doxycycline hyclate 100 mg capsule 100 mg PO BID 7 days #14 caps 07/18/22 Allergies Allergy/AdvReac Type Severity Reaction Status Date / Time aspirin [ASA] AdvReac Mild NAUSEA Unverified 03/25/20 15:09 aspirin Allergy Unknown Nausea Uncoded 07/18/22 05:47 Review of Systems Review of Systems: Pertinent positives and negatives as stated in HPI [facility] Past Medical History Source: nursing notes reviewed Medical History Hypoglycemia Substance abuse Surgical History History of tonsillectomy Hx of appendectomy Previous back surgery Social History Social History Alcohol intake: never Smoked in Last 30 Days: Yes Use of substances other than those prescribed or required for medical reasons: No Advance Directives: No Advance Directives Information Provided: Yes Physical Exam ED Vital Signs: Vital Signs - 24 hr 07/18/22 05:43 07/18/22 05:57 07/18/22 07:14 Temperature 97.5 F 97.9 F 97.9 F Pulse Rate 57 54 46 L Respiratory Rate 16 16 Blood Pressure 130/60 124/76 127/53 L Pulse Oximetry 98 98 97 Oxygen Delivery Method Room Air Room Air Room Air BMI result Body Mass Index 30.5 VITAL SIGNS: Reviewed. GENERAL: Well developed, well nourished, in no acute distress. HEAD: Normocephalic/atraumatic EYES: PERRLA, EOMI EARS: Ext canals without abnormality, TMs non-bulging and non-erythematous NOSE: Nares patent bilateral but boggy turbinates noted OROPHARYNX: no oral lesions noted, posterior pharynx clear and non-erythematous without noted tonsillar enlargement/erythema/exudates NECK: Supple, no adenopathy LUNGS: Coarse rhonchi without tachypnea or retractions. SpO2<97> CARDIOVASCULAR: Regular rate and rhythm without noted murmurs ABDOMEN: Soft, non-tender, non-distended with bowel sounds. MUSCULOSKELETAL: No tenderness, deformities, or effusions noted on gross inspection. EXTREMITIES: No cyanosis, clubbing or edema. SKIN: Inspection of the skin reveals no rashes NEUROLOGIC: Alert and oriented x 4. Strength and sensation to light touch were grossly intact x 4. Medications Administered Generic Name Dose Route Start Last Admin Trade Name Freq PRN Reason Stop Dose Admin Sodium Chloride 1,000 mls @ 999 mls/hr 07/18/22 07:15 07/18/22 07:48 Ns IV 07/18/22 08:15 Infused .Q1H1M QUINTON Infusion Discontinued Medications Generic Name Dose Route Start Last Admin Trade Name Freq PRN Reason Stop Dose Admin Acetaminophen 975 mg 07/18/22 07:02 07/18/22 07:21 Acetaminophen 325 Mg Tablet PO 07/18/22 07:03 975 mg ONCE ONE Administration Piperacillin Sod/Tazobactam 50 mls @ 100 mls/hr 07/18/22 07:02 07/18/22 07:35 Sod 3.375 gm/ Sodium Chloride IV 07/18/22 07:31 Infused ONCE ONE Infusion Ketorolac Tromethamine 15 mg 07/18/22 07:20 07/18/22 07:28 Ketorolac Tromethamine 30 Mg/Ml Vial IVPUSH 07/18/22 07:21 Not Given ONCE ONE Medical Decision Making Medical Decision Making [facility] Narrative: 07: I just saw the patient and suspect pneumonia. Lab work had been completed at the time of my examination and on review my interpretation is that patient has a left-sided pneumonia, is not hypoxic and will be treated with antibiotics, IV fluids, combination analgesics. 0754: On re-evaluation patient is feeling better, no further episodes of blood- tinged sputum, he is otherwise discharged home in stable condition. Differential Diagnosis Differential Diagnoses: The differential diagnosis associated with the presentation includes Please see the discussion above Lab Data MDM Lab Attestation statement: I reviewed the patient's lab results. Please who discussion above 07/18/22 06:09 07/18/22 06:09 Labs: Lab Results 07/18/22 07/18/22 07/18/22 Range/Units 06:00 06:09 06:09 WBC 18.5 H (4.8-10.8) X10*3/uL RBC 4.03 L (4.60-5.80) X10*6/uL Hgb 12.3 L (14.0-18.0) g/dl Hct 35.9 L (42.0-52.0) % MCV 89.1 (80.0-98.0) fL MCH 30.5 (27.0-33.0) pg MCHC 34.3 (31.0-36.0) g/dl RDW 13.2 (11.0-16.0) % Plt Count 195 (160-400) X10*3/uL MPV 10.8 (9.4-12.4) fL Immature Gran % (Auto) 0.4 (0.0-0.4) % Neut % (Auto) 80.2 H (45-73) % Lymph % (Auto) 10.1 L (20-40) % [place] % (Auto) 6.6 (2-11) % Eos % (Auto) 2.5 (0-4) % Baso % (Auto) 0.2 (0-2) % Lymph # (Auto) 1.9 (1.2-4.9) X10*3/uL [place] # (Auto) 1.2 (0.1-1.2) X10*3/uL Eos # (Auto) 0.5 H (0.0-0.4) X10*3/uL Baso # (Auto) 0.0 (0.0-0.2) X10*3/uL Abs Immat Gran (auto) 0.08 H (0.00-0.03) X10*3/uL Absolute Neuts (auto) 14.8 H (2.0-8.3) x10*3/uL Absolute Nucleated RBC 0.000 (0.0-0.012) X10*3/uL Nucleated RBC % (auto) 0.0 (0.0-0.2) /100WBC Sodium 136 (135-145) mmol/L Potassium 4.3 (3.3-5.1) mmol/L Chloride 103 (96-108) mmol/L Carbon Dioxide 25 (22-29) mmol/L Anion Gap 12 (12-20) BUN 9 (9-16) mg/dL Creatinine 0.76 (0.5-1.4) mg/dL Estim Creat Clear Calc 153.3 Estimated GFR > 60 Random Glucose 118 H (60-115) mg/dL Lactic Acid (0.5-2.0) mmol/L Calcium 9.0 D (8.4-10.2) mg/dL Total Bilirubin 0.5 (0.0-1.0) mg/dL AST 13 (5-37) U/L ALT 10 (0-40) U/L Alkaline Phosphatase 73 (39-117) U/L Total Protein 5.7 L (6.5-8.0) g/dL Albumin 3.8 (3.5-5.0) g/dL Influenza Type A (PCR) NEGATIVE (Negative) Influenza Type B (PCR) NEGATIVE (Negative) RSV RNA Qual (PCR) NEGATIVE (Negative) SARS-CoV-2 RNA (RT-PCR) NEGATIVE (Negative) S. pyogenes GrpA ALFREDA (Negative) 07/18/22 07/18/22 Range/Units 06:40 06:47 WBC (4.8-10.8) X10*3/uL RBC (4.60-5.80) X10*6/uL Hgb (14.0-18.0) g/dl Hct (42.0-52.0) % MCV (80.0-98.0) fL MCH (27.0-33.0) pg MCHC (31.0-36.0) g/dl RDW (11.0-16.0) % Plt Count (160-400) X10*3/uL MPV (9.4-12.4) fL Immature Gran % (Auto) (0.0-0.4) % Neut % (Auto) (45-73) % Lymph % (Auto) (20-40) % [place] % (Auto) (2-11) % Eos % (Auto) (0-4) % Baso % (Auto) (0-2) % Lymph # (Auto) (1.2-4.9) X10*3/uL [place] # (Auto) (0.1-1.2) X10*3/uL Eos # (Auto) (0.0-0.4) X10*3/uL Baso # (Auto) (0.0-0.2) X10*3/uL Abs Immat Gran (auto) (0.00-0.03) X10*3/uL Absolute Neuts (auto) (2.0-8.3) x10*3/uL Absolute Nucleated RBC (0.0-0.012) X10*3/uL Nucleated RBC % (auto) (0.0-0.2) /100WBC Sodium (135-145) mmol/L Potassium (3.3-5.1) mmol/L Chloride (96-108) mmol/L Carbon Dioxide (22-29) mmol/L Anion Gap (12-20) BUN (9-16) mg/dL Creatinine (0.5-1.4) mg/dL Estim Creat Clear Calc Estimated GFR Random Glucose (60-115) mg/dL Lactic Acid 0.7 (0.5-2.0) mmol/L Calcium (8.4-10.2) mg/dL Total Bilirubin (0.0-1.0) mg/dL AST (5-37) U/L ALT (0-40) U/L Alkaline Phosphatase (39-117) U/L Total Protein (6.5-8.0) g/dL Albumin (3.5-5.0) g/dL Influenza Type A (PCR) (Negative) Influenza Type B (PCR) (Negative) RSV RNA Qual (PCR) (Negative) SARS-CoV-2 RNA (RT-PCR) (Negative) S. pyogenes GrpA ALFREDA Negative (Negative) Radiology Impression Radiologist Impression: My interpretation is in agreement with radiology's impression of the imaging study External Record Review External record reviewed: Outpatient record and Prior outpatient labs Chronic Conditions Patient?s care impacted by: Other Smoker Discharge Plan Discharge Clinical Impression: Pneumonia Patient Disposition: Home, Self-Care Instructions: How to Stop Smoking (ED), Community Acquired Pneumonia (ED) Additional Instructions: 1. Resume all home medications as prescribed. 2. Complete the entire course of antibiotics as ordered. Recommend [id number] Tylenol/ibuprofen as needed for body aches, fevers greater than 100.4, bedside cool mist humidifier, [id number] cough medication such as NyQuil. 3. You must call the office of your primary care provider today and set up an appointment for re-evaluation. My recommendation is that since you are a current everyday smoker you will need a follow-up chest x-ray to ensure that this infection is not related to a mass as well. Return to the ER for worsening symptoms. Prescriptions: New doxycycline hyclate 100 mg capsule 100 mg PO BID 7 Days Qty: 14 0RF No Action levofloxacin 750 mg tablet 750 mg PO DAILY Qty: 10 0RF quetiapine [Seroquel XR] 50 mg tablet extended release 24 hr 50 mg PO BEDTIME Qty: 7 0RF lorazepam 1 mg tablet 1 mg PO BEDTIME PRN (Reason: imsomnia) Qty: 2 0RF Referrals: Shu Malik NP [Primary Care Provider] - (Patient diagnosed with a pneumonia today, started on doxycycline b.i.d. for 7 days, may consider repeat chest x-ray as he is an everyday smoker.) Stand Alone Forms: Work/School Release
--- NOTE | 2022-07-18 07:03 | PC.NURSE ---
assumed care of patient, pt aox3, calm and cooperative, VSS, awaiting final plan
[2022-07-18 07:13] LABS: IDNOW Serial# 6674DD1D; Strep A Nucleic Acid Negative (Negative)
[2022-07-18 07:14] VITALS: BP 127/53; PULSE 46; RESP 16; TEMP 36.6; O2SAT 97
[2022-07-18] MEDS: Piperacillin Sodium/Tazobactam 3.375 GM in 0.9 % Sodium Chloride 50 ML IV (07:21)
[2022-07-18] MEDS: Acetaminophen 325 MG TABLET 975 MG PO (07:21)
[2022-07-18] MEDS: 0.9 % Sodium Chloride 1,000 ML 999 ML IV (07:22)
--- NOTE | 2022-07-18 07:32 | PC.NURSE ---
IV abx and fluids infusing at this time
== END 2022-07-18 07:57 | disposition home or self-care (01) ==
PROVIDERS: Emergency Medicine; Emergency Provider Student in an Organized Health Care Education/Training Program; PCP Nurse Practitioner Family
DX: J18.9 Pneumonia, unspecified organism (principal); Z20.822 Contact with and (suspected) exposure to COVID-19; Z20.828 Contact with and (suspected) exposure to other viral communicable diseases; F19.10 Other psychoactive substance abuse, uncomplicated
CPT/HCPCS: 0241U; 36415; 71045; 80053; 83605; 85025; 87040; 87651; 99283; 99284; J2543

== ENCOUNTER 2022-08-26 07:31 | Emergency (ER) | payer OTHER, SELFPAY ==
--- NOTE | ~2022-08-26 | XR_ITS ---
EXAMINATION: XR CHEST CLINICAL INFORMATION: Cough COMPARISON: July 18, [address] scan of October 07, 2020 TECHNIQUE: AP portable view of the chest was obtained. FINDINGS: There has been improvement in left lung base disease. There are a few stable calcified densities seen most prominent within the right upper lobe. Heart normal size. No evidence of pulmonary edema. No pneumothorax or pleural effusion. XR/XR chest 1V IMPRESSION: Improved left lower lung disease. No new focus of acute parenchymal disease. Calcified lung nodules.
[2022-08-26 07:43] VITALS: BP 146/92; PULSE 68; RESP 20; TEMP 36.6; O2SAT 96; BMI 29.1
--- NOTE | 2022-08-26 07:58 | ED.URI ---
HPI - URI/Sore Throat General Chief Complaint: Upper Respiratory Symptoms Stated Complaint: rib pain and diff breathing Time Seen by Provider: 08/26/22 07:55 Source: patient Mode of arrival: ambulatory Limitations: no limitations History of Present Illness HPI Narrative: This is a 46 years old patient with history of opioid use disorder on methadone presented to emergency room complaining of cough and congestion. He states that he has a history of pneumonia. Denies any fever chills vomiting diarrhea MD elicited complaint: cough Pertinent past history: other (Opioid use disorder/smoker) Onset (ago): day(s) (3) Consistency: constant Severity: mild Description of mucous: clear Able to tolerate fluids by mouth: Yes Exacerbating factors: nothing Relieving factors: nothing Related Data Previous Rx's Medication Instructions Recorded levofloxacin 750 mg tablet 750 mg PO DAILY #10 tabs 10/08/20 lorazepam 1 mg tablet 1 mg PO BEDTIME PRN imsomnia #2 02/16/22 tabs quetiapine 50 mg tablet,extended 50 mg PO BEDTIME #7 tabs 02/16/22 release 24 hr (Seroquel XR) doxycycline hyclate 100 mg capsule 100 mg PO BID 7 days #14 caps 07/18/22 amoxicillin 500 mg capsule 500 mg PO Q8H #21 caps 08/26/22 Allergies Allergy/AdvReac Type Severity Reaction Status Date / Time aspirin [ASA] AdvReac Mild NAUSEA Unverified 03/25/20 15:09 aspirin Allergy Unknown Nausea Uncoded 07/18/22 05:47 Review of Systems Constitutional: Constitutional: Reports no additional constitutional complaints ENT: Reports system reviewed and no additional complaints, except as documented Cardiovascular: Cardiovascular: Reports no additional cardiovascular complaints Respiratory: Respiratory: Reports chest congestion and Reports cough Gastrointestinal: Gastrointestinal: Reports no additional gastrointestinal complaints [facility] Past Medical History [facility] Narrative: Opioid use disorder/smoker/hypoglycemia Medical History Hypoglycemia Substance abuse Surgical History History of tonsillectomy Hx of appendectomy Previous back surgery Social History Social History Alcohol intake: current Alcohol intake frequency: holidays/special occasions only Smoked in Last 30 Days: Yes Use of substances other than those prescribed or required for medical reasons: No Advance Directives: No Advance Directives Information Provided: Yes Physical Exam Vital Signs: Vital Signs: Last Vital Signs Temp 97.9 F 08/26/22 07:43 Pulse 68 08/26/22 07:43 Resp 20 08/26/22 07:43 BP 146/92 H 08/26/22 07:43 Pulse Ox 96 08/26/22 07:43 O2 Del Method 08/26/22 07:43 BMI result Body Mass Index 29.1 Const: General: cooperative Nutritional Appearance: average body habitus Orientation/consciousness: patient oriented x3 HEENT: Head: Yes normal to inspection Ears: hearing grossly normal bilaterally General nose exam: Normal external nose present Face and sinus: Yes normal facial exam Mouth: Normal oral and palatal mucosa present Throat: Yes posterior oropharynx normal Neck: Neck: Yes normal visual inspection, Yes full ROM and Yes no lymphadenopathy Chest: Chest palpation & inspection: normal inspection of the chest Resp: Effort & Inspection: normal respiratory effort Auscultation: rhonchi Cardio: Jugular venous distension: no JVD Rate: regular rate Rhythm: regular rhythm GI: Inspection: Yes normal to inspection Palpation (GI): Soft to palpation, not firm, nontender and no guarding Percussion: Yes normal to percussion Auscultation: normal bowel sounds : General: Yes no CVA tenderness Back/Spine/Pelvis: Back: no CVA tenderness Skin: General skin exam: no rashes or lesions noted Lesions: no lesions Rashes: no rashes Neuro: General: patient oriented x3 Cranial nerves: Yes CN's II-XII intact bilaterally Motor exam (neuro): 5/5 motor strength present throughout Extrem: General: Yes normal to inspection, Yes full ROM and Yes capillary refill normal Right upper extremity: full ROM Course Reevaluation(s) Reevaluation #1: Chest x-ray negative, O2 sat 96% okay to discharge Time: 09:08 Medical Decision Making Medical Decision Making [facility] Narrative: Patient presented with cough or congestion get a chest x-ray and reassessed Differential Diagnosis Differential Diagnoses: The differential diagnosis associated with the presentation includes Pneumonia/bronchitis /COPD Admission/Observation Consideration of admission/observation: Escalation of care including admission/observation considered Lab Data [facility] Lab Attestation statement: I reviewed the patient's lab results. Labs: Lab Results 08/26/22 Range/Units 07:41 Influenza Type A (PCR) NEGATIVE (Negative) Influenza Type B (PCR) NEGATIVE (Negative) RSV RNA Qual (PCR) NEGATIVE (Negative) SARS-CoV-2 RNA (RT-PCR) NEGATIVE (Negative) Independent Interpretation I performed an independent interpretation of an: EKG (Normal sinus rhythm a rate [address]-T changes this is a normal EKG) and Plain X-Ray Interpretation: normal Radiology Impression Discussion of test interpretation with radiology: I have reviewed the radiologist's reading. Radiologist Impression: COMPARISON: July 18, [address] scan of October 07, 2020 TECHNIQUE: AP portable view of the chest was obtained. FINDINGS: There has been improvement in left lung base disease. There are a few stable calcified densities seen most prominent within the right upper lobe. Heart normal size. No evidence of pulmonary edema. No pneumothorax or pleural effusion. XR/XR chest 1V IMPRESSION: Improved left lower lung disease. No new focus of acute parenchymal disease. ? Calcified lung nodules. ? Dictated By: Milton Thomas MD Signed By: <Electronically signed by Milton Thomas MD in OV> 08/26/22 0824 DD/ 0805 TD/TT:? Hvac Engineering Technician: Discharge Plan Discharge Clinical Impression: Bronchitis Patient Disposition: Home, Self-Care Instructions: Acute Bronchitis (ED) Additional Instructions: Follow-up with you primary care physician return if you worse Prescriptions: New amoxicillin 500 mg capsule 500 mg PO Q8H Qty: 21 0RF No Action levofloxacin 750 mg tablet 750 mg PO DAILY Qty: 10 0RF quetiapine [Seroquel XR] 50 mg tablet extended release 24 hr 50 mg PO BEDTIME Qty: 7 0RF lorazepam 1 mg tablet 1 mg PO BEDTIME PRN (Reason: imsomnia) Qty: 2 0RF doxycycline hyclate 100 mg capsule 100 mg PO BID 7 Days Qty: 14 0RF
--- NOTE | 2022-08-26 08:01 | ECG_ITS ---
Test Reason : CHEST PAIN Blood Pressure : / mmHG Vent. Rate : 060 BPM Atrial Rate : 060 BPM P-R Int : 132 ms QRS Dur : 096 ms QT Int : 440 ms P-R-T Axes : 057 054 -03 degrees QTc Int : 440 ms Normal sinus rhythm with sinus arrhythmia Nonspecific T wave changes Borderline ECG When compared with ECG of 07-OCT-2020 16:12, No significant change was found Referred By: Ignacio Castro Electronically Signed By:Doc Cabrales
[2022-08-26 08:38] LABS: Influenza A PCR NEGATIVE (Negative); Influenza B PCR NEGATIVE (Negative); Resp Syncy Virus RNA Qual PCR NEGATIVE (Negative); SARS COV2 PCR INHOUSE NEGATIVE (Negative)
== END 2022-08-26 09:15 | disposition home or self-care (01) ==
PROVIDERS: Emergency Provider Emergency Medicine; PCP Nurse Practitioner Family
DX: J40 Bronchitis, not specified as acute or chronic (principal); Z20.822 Contact with and (suspected) exposure to COVID-19; Z20.828 Contact with and (suspected) exposure to other viral communicable diseases; Z87.891 Personal history of nicotine dependence
CPT/HCPCS: 0241U; 71045; 93005; 99283; 99284

== ENCOUNTER 2022-09-03 15:12 | Emergency (ER) | payer OTHER, SELFPAY ==
--- NOTE | ~2022-09-03 | XR_ITS ---
EXAMINATION: XR chest 2V CLINICAL INFORMATION: Dyspnea COMPARISON: Multiple prior chest x-rays 2020 through 2022 TECHNIQUE: XR chest 2V Lungs and Janette: Hyperdense calcified nodules projecting over the right upper lobe are chronic unchanged. Mild infiltrate at left lower lobe is improving. No new consolidation. Costophrenic angles are sharp. Pleura: Normal. Costophrenic angles are sharp. No pneumothorax. Heart: The heart is normal in size. Mediastinum: The mediastinum is within normal limits.. Bones: Skeletal structures included are normal for patient's age. XR/XR chest 2V IMPRESSION: * Improving mild infiltrate at left lower lobe. * No radiographic evidence of acute infiltrates or failure. * Chronic changes as above.
[2022-09-03 15:20] VITALS: BP 90/48; PULSE 70; RESP 18; TEMP 36.4; O2SAT 95; BMI 29.1
[2022-09-03 15:43] LABS: MANUAL DIFF FLAG NO
[2022-09-03 15:45] LABS: Basophils Percent Auto 0.2 % (0-2); Eosinophils Absolute Auto 1.4 X10*3/uL (0.0-0.4); Eosinophils Percent Auto 14.3 % (0-4); Hematocrit 40.1 % (42.0-52.0); Hemoglobin 13.6 g/dl (14.0-18.0); Imm Gran Abs Auto 0.03 X10*3/uL (0.00-0.03); Imm Gran Pct Auto 0.3 % (0.0-0.4); Lymphocytes Absolute Auto 2.3 X10*3/uL (1.2-4.9); Lymphocytes Percent Auto 24.2 % (20-40); Mean Corpuscular HGB Conc 33.9 g/dl (31.0-36.0); Mean Corpuscular Hemoglobin 30.6 pg (27.0-33.0); Mean Corpuscular Volume 90.3 fL (80.0-98.0); Mean Platelet Volume 9.8 fL (9.4-12.4); Monocytes Absolute Auto 0.6 X10*3/uL (0.1-1.2); Monocytes Percent Auto 5.8 % (2-11); Neutrophils Absolute Auto 5.2 x10*3/uL (2.0-8.3); Neutrophils Percent Auto 55.2 % (45-73); Platelet Count 252 X10*3/uL (160-400); Red Blood Count 4.44 X10*6/uL (4.60-5.80); Red Cell Distribution Width 13.7 % (11.0-16.0); White Blood Count 9.5 X10*3/uL (4.8-10.8)
[2022-09-03 16:01] LABS: Alanine Aminotransferase 14 U/L (0-40); Alkaline Phosphatase 92 U/L (39-117); Anion Gap 14 (12-20); Aspartate Amino Transferase 14 U/L (5-37); Bilirubin Total 0.3 mg/dL (0.0-1.0); Blood Urea Nitrogen 13 mg/dL (9-16); Calcium 9.3 mg/dL (8.4-10.2); Carbon Dioxide 28 mmol/L (22-29); Chloride 103 mmol/L (96-108); Creatinine Clr Calc Pharmacy 128.1; Estimated Glomerular Filt Rate > 60; Glucose Random 109 mg/dL (60-115); Potassium 4.8 mmol/L (3.3-5.1); Sodium 140 mmol/L (135-145); Total Protein 6.3 g/dL (6.5-8.0)
[2022-09-03 16:02] LABS: COVID-19 Test Negative (Negative); IDNOW Serial# 55D5AD1C; IDNOW Serial# 9DB6401D; Influenza A Negative (Negative); Influenza B2 Negative (Negative)
--- NOTE | 2022-09-03 16:14 | ED.SOB ---
HPI - SOB/Dyspnea General Chief Complaint: Dyspnea <CARMELA Cortez Last Filed: 09/03/22 17:40> Stated Complaint: brochitis? wheezing <CARMELA Cortez Last Filed: 09/03/22 17:40> Time Seen by Provider: 09/03/22 16:10 <CARMELA Cortez Last Filed: 09/03/22 17:40> Source: patient <CARMELA Cortez Last Filed: 09/03/22 17:40> Mode of arrival: ambulatory <CARMELA Cortez Last Filed: 09/03/22 17:40> History of Present Illness HPI Narrative: 46-year-old male with past medical history substance abuse on Methadone, recently treated for bronchitis with Amoxicillin presenting to the ED c/o persistent productive cough, SOB, chest discomfort when coughing, and sore throat x1 week. Admits to sick contacts at work. Denies fever, chills, abdominal pain, N/V/D, pedal edema, travel <CARMELA Cortez Last Filed: 09/03/22 17:40> MD elicited complaint: shortness of breath and cough <CARMELA Cortez Last Filed: 09/03/22 17:40> Related Data Home Medications: Previous Rx's Medication Instructions Recorded levofloxacin 750 mg tablet 750 mg PO DAILY #10 tabs 10/08/20 lorazepam 1 mg tablet 1 mg PO BEDTIME PRN imsomnia #2 02/16/22 tabs quetiapine 50 mg tablet,extended 50 mg PO BEDTIME #7 tabs 02/16/22 release 24 hr (Seroquel XR) doxycycline hyclate 100 mg capsule 100 mg PO BID 7 days #14 caps 07/18/22 amoxicillin 500 mg capsule 500 mg PO Q8H #21 caps 08/26/22 albuterol sulfate 90 mcg/actuation 2 puff inhalation Q4-6H PRN 09/03/22 aerosol inhaler shortness of breath or wheezing #6.7 grams benzonatate 100 mg capsule 100 mg PO TID PRN cough #14 caps 09/03/22 fluticasone propionate 50 2 spray intranasal DAILY #16 grams 09/03/22 mcg/actuation nasal spray,suspension (Flonase Allergy Relief) prednisone 20 mg tablet 40 mg PO DAILY 5 days #10 tabs 09/03/22 <CARMELA Cortez Last Filed: 09/03/22 17:40> Allergies/Adverse Reactions: Allergies Allergy/AdvReac Type Severity Reaction Status Date / Time aspirin [ASA] AdvReac Mild NAUSEA Verified 09/03/22 19:53 aspirin Allergy Unknown Nausea Uncoded 07/18/22 05:47 <CARMELA Cortez - Last Filed: 09/03/22 17:40> Review of Systems Review of Systems: Constitutional: No Fever, No Chills, No Fatigue, No Malaise ENT/Mouth: No Ear Pain, No Nasal Congestion, No Sinus Pain, No Hoarseness, + sore throat, No Rhinorrhea, No Swallowing Difficulty Eyes: No Eye Pain, No Swelling, No Redness, No Vision Changes Cardiovascular: + Chest Pain w/cough, + SOB, No Dyspnea on Exertion, No Orthopnea, No Edema, No Palpitations Respiratory: + Cough, + Sputum, + Wheezing, No Dyspnea Gastrointestinal: No Nausea, No Vomiting, No Diarrhea, No Constipation, No Abdominal pain Genitourinary: No Dysuria, No Urinary Frequency, No Hematuria, No Flank Pain Musculoskeletal: No joint pain, No Myalgias, No Joint Swelling Skin: No Skin Lesions, No rash Neuro: No Weakness, No Numbness, No Dizziness, No Headache <CARMELA Cortez - Last Filed: 09/03/22 17:40> Yes all other systems are reviewed and are negative <CARMELA Cortez Last Filed: 09/03/22 17:40> Constitutional: Constitutional: Reports as per HPI <CARMELA Cortez Last Filed: 09/03/22 17:40> [facility] Past Medical History Attestation statement: The following information was validated with the patient. <CARMELA Cortez Last Filed: 09/03/22 17:40> Medical History: Medical History Hypoglycemia Substance abuse <CARMELA Cortez Last Filed: 09/03/22 17:40> Surgical History: Surgical History History of tonsillectomy Hx of appendectomy Previous back surgery <CARMELA Cortez - Last Filed: 09/03/22 17:40> Social History Social History: Social History Alcohol intake: current Alcohol intake frequency: holidays/special occasions only Advance Directives: No Advance Directives Information Provided: No <CARMELA Cortez - Last Filed: 09/03/22 17:40> Physical Exam Vital Signs: Vital Signs: Last Vital Signs Temp 98.1 F 09/03/22 18:00 Pulse 59 09/03/22 20:00 Resp 18 09/03/22 20:00 BP 117/44 L 09/03/22 18:00 Pulse Ox 98 09/03/22 18:00 O2 Del Method 09/03/22 18:00 BMI result Body Mass Index 29.1 <CARMELA Cortez - Last Filed: 09/03/22 17:40> Vital Signs: Last Vital Signs Temp 98.1 F 09/03/22 18:00 Pulse 59 09/03/22 20:00 Resp 18 09/03/22 20:00 BP 117/44 L 09/03/22 18:00 Pulse Ox 98 09/03/22 18:00 O2 Del Method 09/03/22 18:00 BMI result Body Mass Index 29.1 <CARMELA Irene - Last Filed: 09/04/22 04:12> Const: General: cooperative, healthy appearing and no acute distress <CARMELA Cortez - Last Filed: 09/03/22 17:40> Orientation/consciousness: patient oriented x3 <CARMELA Cortez - Last Filed: 09/03/22 17:40> Limitations: no limitations <CARMELA Cortez Last Filed: 09/03/22 17:40> HEENT: Head: Yes normal to inspection and Yes atraumatic <CARMELA Cortez Last Filed: 09/03/22 17:40> Ears: hearing grossly normal bilaterally <CARMELA Cortez Last Filed: 09/03/22 17:40> General nose exam: Normal external nose present <CARMELA Cortez - Last Filed: 09/03/22 17:40> Face and sinus: Yes normal facial exam <Marnie Ren PA - Last Filed: 09/03/22 17:40> Throat: Yes uvula midline, Yes abnormal tonsil (erythema and exudates), No peritonsillar mass, No uvula laterally displaced and No uvular edema <Marnie Ren PA - Last Filed: 09/03/22 17:40> Eyes: General: appearance normal, both eyes and all related structures <Marnie Ren PA - Last Filed: 09/03/22 17:40> EOM: EOMs intact bilaterally <Marnie Ren PA - Last Filed: 09/03/22 17:40> Neck: Neck: Yes normal visual inspection and Yes no meningeal signs <Marnie Ren PA - Last Filed: 09/03/22 17:40> Resp: Effort & Inspection: normal respiratory effort, no respiratory distress and no stridor <Marnie Ren PA - Last Filed: 09/03/22 17:40> Auscultation: clear to auscultation bilaterally, no crackles, no rales, no rhonchi and no wheezes <Marnie Ren PA - Last Filed: 09/03/22 17:40> Cardio: Rate: regular rate <Marnie Ren PA - Last Filed: 09/03/22 17:40> Heart sounds: S1 normal heart sound present and S2 normal heart sound present <Marnie Ren PA - Last Filed: 09/03/22 17:40> GI: Inspection: Yes normal to inspection <Marnie Ren PA - Last Filed: 09/03/22 17:40> Palpation (GI): Soft to palpation, nontender, no guarding and not rigid <Marnie Poulguilherme PA - Last Filed: 09/03/22 17:40> : General: Yes no CVA tenderness <Marnie Poulguilherme PA - Last Filed: 09/03/22 17:40> Back/Spine/Pelvis: Back: no CVA tenderness <Marnie Poulguilherme PA - Last Filed: 09/03/22 17:40> Skin: Rashes: no rashes <Marnie Pouliot, PA - Last Filed: 09/03/22 17:40> Wounds: no wounds <CARMELA Cortez Last Filed: 09/03/22 17:40> Neuro: General: patient oriented x3, tone normal and no meningeal signs <CARMELA Cortez Last Filed: 09/03/22 17:40> Gait exam (Neuro): Normal gait present <CARMELA Cortez Last Filed: 09/03/22 17:40> Extrem: General: Yes normal to inspection, Yes no pedal edema and Yes no calf tenderness <CARMELA Cortez Last Filed: 09/03/22 17:40> Course Course Course Narrative: -1738--COVID & influenza negative -no leukocytosis. Labs otherwise reassuring. XR chest 2V IMPRESSION: *? Improving mild infiltrate at left lower lobe. *? No radiographic evidence of acute infiltrates or failure. *? Chronic changes as above. ? -1800--ED care transferred to [facility] pending troponin, BNP, rapid strep, and re-evaluation. Anticipate DC home <CARMELA Cortez - Last Filed: 09/03/22 17:40> Reevaluation(s) Reevaluation #1: Patient did not want repeat of troponin. Patient like to be discharged. Patient explained risk of if he is actually having heart attack but patient still wants to sign against medical advice. On ambulation patient's heart rate improved to 60. Patient informed to follow-up with outpatient Cardiology due to heart rate dropped into the 40s while during the ER. Repeat EKG showed sinus bradycardia. Patient will signed against medical advice. Patient alert oriented x3 <CARMELA Irene - Last Filed: 09/04/22 04:12> Medications Administered Discontinued Medications Generic Name Dose Route Start Last Admin Trade Name Freq PRN Reason Stop Dose Admin Albuterol Sulfate 4 puff 09/03/22 16:19 09/03/22 16:48 Albuterol Sulfate 90 Mcg 8 Gm Inhaler INHALE 09/03/22 16:20 4 puff ONCE ONE Administration Sodium Chloride 1,000 mls @ 999 mls/hr 09/03/22 16:30 09/03/22 19:52 Ns IV 09/03/22 17:30 Infused .Q1H1M QUINTON Infusion Prednisone 40 mg 09/03/22 17:36 09/03/22 17:43 Prednisone 20 Mg Tablet PO 09/03/22 17:37 40 mg ONCE ONE Administration <CARMELA Cortez - Last Filed: 09/03/22 17:40> Medications Administered Discontinued Medications Generic Name Dose Route Start Last Admin Trade Name Tabby PRN Reason Stop Dose Admin Albuterol Sulfate 4 puff 09/03/22 16:19 09/03/22 16:48 Albuterol Sulfate 90 Mcg 8 Gm Inhaler INHALE 09/03/22 16:20 4 puff ONCE ONE Administration Sodium Chloride 1,000 mls @ 999 mls/hr 09/03/22 16:30 09/03/22 19:52 Ns IV 09/03/22 17:30 Infused .Q1H1M QUINTON Infusion Prednisone 40 mg 09/03/22 17:36 09/03/22 17:43 Prednisone 20 Mg Tablet PO 09/03/22 17:37 40 mg ONCE ONE Administration <CARMELA Irene - Last Filed: 09/04/22 04:12> Medical Decision Making Medical Decision Making MDM Narrative: 46-year-old male with past medical history substance abuse on Methadone, recently treated for bronchitis with Amoxicillin presenting to the ED c/o persistent productive cough, SOB, chest discomfort when coughing, and sore throat x1 week. On exam BP soft, NAD, nontoxic appearing, Lungs CTA, ne pedal edema/calf ttp, +tonsillar erythema and exudates. No VICE PRESIDENT AND [employer]NAGER. Concern for continued bronchitis vs PNA vs viral syndrome vs strep. Lower suspicion for ACS/PE or CHF. No evidence of VICE PRESIDENT AND PORTFOLIO MANAGER Plan: EKG, Labs, CXR, COVID testing, Albuterol, PO Prednisone, Reassess Please refer to course for remaining clinical decision making, interpretation of labs/imaging results, and discussions with consultants and/or family members. <CARMELA Cortez - Last Filed: 09/03/22 17:40> Differential Diagnosis Differential Diagnoses: The differential diagnosis associated with the presentation includes <CARMELA Cortez Last Filed: 09/03/22 17:40> as above <CARMELA Cortez Last Filed: 09/03/22 17:40> Lab Data [facility] Lab Attestation statement: I reviewed the patient's lab results. <CARMELA Cortez - Last Filed: 09/03/22 17:40> Result Diagrams: 09/03/22 15:37 09/03/22 15:37 <CARMELA Cortez - Last Filed: 09/03/22 17:40> Labs: Lab Results 09/03/22 09/03/22 09/03/22 Range/Units 15:37 15:37 15:37 WBC 9.5 (4.8-10.8) X10*3/uL RBC 4.44 L (4.60-5.80) X10*6/uL Hgb 13.6 L (14.0-18.0) g/dl Hct 40.1 L (42.0-52.0) % MCV 90.3 (80.0-98.0) fL MCH 30.6 (27.0-33.0) pg MCHC 33.9 (31.0-36.0) g/dl RDW 13.7 (11.0-16.0) % Plt Count 252 D (160-400) X10*3/uL MPV 9.8 (9.4-12.4) fL Immature Gran % (Auto) 0.3 (0.0-0.4) % Neut % (Auto) 55.2 (45-73) % Lymph % (Auto) 24.2 (20-40) % Wilkinson % (Auto) 5.8 (2-11) % Eos % (Auto) 14.3 H (0-4) % Baso % (Auto) 0.2 (0-2) % Lymph # (Auto) 2.3 (1.2-4.9) X10*3/uL Wilkinson # (Auto) 0.6 (0.1-1.2) X10*3/uL Eos # (Auto) 1.4 H (0.0-0.4) X10*3/uL Baso # (Auto) 0.0 (0.0-0.2) X10*3/uL Abs Immat Gran (auto) 0.03 (0.00-0.03) X10*3/uL Absolute Neuts (auto) 5.2 (2.0-8.3) x10*3/uL Absolute Nucleated RBC 0.000 (0.0-0.012) X10*3/uL Nucleated RBC % (auto) 0.0 (0.0-0.2) /100WBC Sodium 140 (135-145) mmol/L Potassium 4.8 (3.3-5.1) mmol/L Chloride 103 (96-108) mmol/L Carbon Dioxide 28 (22-29) mmol/L Anion Gap 14 (12-20) BUN 13 (9-16) mg/dL Creatinine 0.89 (0.5-1.4) mg/dL Estim Creat Clear Calc 128.1 Estimated GFR > 60 Random Glucose 109 (60-115) mg/dL Calcium 9.3 (8.4-10.2) mg/dL Total Bilirubin 0.3 (0.0-1.0) mg/dL AST 14 (5-37) U/L ALT 14 (0-40) U/L Alkaline Phosphatase 92 (39-117) U/L Troponin I High Sens (<3.5-35.0) ng/L B-Natriuretic Peptide (<100) pg/mL Total Protein 6.3 L (6.5-8.0) g/dL Albumin 4.0 (3.5-5.0) g/dL COVID-19 (VIVIAN) Negative (Negative) COVID-19 Clin Com See Note Influenza Type A (ALFREDA) (Negative) Influenza Type B (ALFREDA) (Negative) Influenza A & B Note S. pyogenes GrpA ALFREDA (Negative) 09/03/22 09/03/22 09/03/22 Range/Units 15:37 15:37 17:38 WBC (4.8-10.8) X10*3/uL RBC (4.60-5.80) X10*6/uL Hgb (14.0-18.0) g/dl Hct (42.0-52.0) % MCV (80.0-98.0) fL MCH (27.0-33.0) pg MCHC (31.0-36.0) g/dl RDW (11.0-16.0) % Plt Count (160-400) X10*3/uL MPV (9.4-12.4) fL Immature Gran % (Auto) (0.0-0.4) % Neut % (Auto) (45-73) % Lymph % (Auto) (20-40) % Wilkinson % (Auto) (2-11) % Eos % (Auto) (0-4) % Baso % (Auto) (0-2) % Lymph # (Auto) (1.2-4.9) X10*3/uL Wilkinson # (Auto) (0.1-1.2) X10*3/uL Eos # (Auto) (0.0-0.4) X10*3/uL Baso # (Auto) (0.0-0.2) X10*3/uL Abs Immat Gran (auto) (0.00-0.03) X10*3/uL Absolute Neuts (auto) (2.0-8.3) x10*3/uL Absolute Nucleated RBC (0.0-0.012) X10*3/uL Nucleated RBC % (auto) (0.0-0.2) /100WBC Sodium (135-145) mmol/L Potassium (3.3-5.1) mmol/L Chloride (96-108) mmol/L Carbon Dioxide (22-29) mmol/L Anion Gap (12-20) BUN (9-16) mg/dL Creatinine (0.5-1.4) mg/dL Estim Creat Clear Calc Estimated GFR Random Glucose (60-115) mg/dL Calcium (8.4-10.2) mg/dL Total Bilirubin (0.0-1.0) mg/dL AST (5-37) U/L ALT (0-40) U/L Alkaline Phosphatase (39-117) U/L Troponin I High Sens 5.6 (<3.5-35.0) ng/L B-Natriuretic Peptide 38 (<100) pg/mL Total Protein (6.5-8.0) g/dL Albumin (3.5-5.0) g/dL COVID-19 (VIVIAN) (Negative) COVID-19 Clin Com Influenza Type A (ALFREDA) Negative (Negative) Influenza Type B (ALFREDA) Negative (Negative) Influenza A & B Note See Note S. pyogenes GrpA ALFREDA (Negative) 09/03/22 Range/Units 17:55 WBC (4.8-10.8) X10*3/uL RBC (4.60-5.80) X10*6/uL Hgb (14.0-18.0) g/dl Hct (42.0-52.0) % MCV (80.0-98.0) fL MCH (27.0-33.0) pg MCHC (31.0-36.0) g/dl RDW (11.0-16.0) % Plt Count (160-400) X10*3/uL MPV (9.4-12.4) fL Immature Gran % (Auto) (0.0-0.4) % Neut % (Auto) (45-73) % Lymph % (Auto) (20-40) % Wilkinson % (Auto) (2-11) % Eos % (Auto) (0-4) % Baso % (Auto) (0-2) % Lymph # (Auto) (1.2-4.9) X10*3/uL Wilkinson # (Auto) (0.1-1.2) X10*3/uL Eos # (Auto) (0.0-0.4) X10*3/uL Baso # (Auto) (0.0-0.2) X10*3/uL Abs Immat Gran (auto) (0.00-0.03) X10*3/uL Absolute Neuts (auto) (2.0-8.3) x10*3/uL Absolute Nucleated RBC (0.0-0.012) X10*3/uL Nucleated RBC % (auto) (0.0-0.2) /100WBC Sodium (135-145) mmol/L Potassium (3.3-5.1) mmol/L Chloride (96-108) mmol/L Carbon Dioxide (22-29) mmol/L Anion Gap (12-20) BUN (9-16) mg/dL Creatinine (0.5-1.4) mg/dL Estim Creat Clear Calc Estimated GFR Random Glucose (60-115) mg/dL Calcium (8.4-10.2) mg/dL Total Bilirubin (0.0-1.0) mg/dL AST (5-37) U/L ALT (0-40) U/L Alkaline Phosphatase (39-117) U/L Troponin I High Sens (<3.5-35.0) ng/L B-Natriuretic Peptide (<100) pg/mL Total Protein (6.5-8.0) g/dL Albumin (3.5-5.0) g/dL COVID-19 (VIVIAN) (Negative) COVID-19 Clin Com Influenza Type A (ALFREDA) (Negative) Influenza Type B (ALFREDA) (Negative) Influenza A & B Note S. pyogenes GrpA ALFREDA Negative (Negative) <CARMELA Cortez - Last Filed: 09/03/22 17:40> Lab Results 09/03/22 09/03/22 09/03/22 Range/Units 15:37 15:37 15:37 WBC 9.5 (4.8-10.8) X10*3/uL RBC 4.44 L (4.60-5.80) X10*6/uL Hgb 13.6 L (14.0-18.0) g/dl Hct 40.1 L (42.0-52.0) % MCV 90.3 (80.0-98.0) fL MCH 30.6 (27.0-33.0) pg MCHC 33.9 (31.0-36.0) g/dl RDW 13.7 (11.0-16.0) % Plt Count 252 D (160-400) X10*3/uL MPV 9.8 (9.4-12.4) fL Immature Gran % (Auto) 0.3 (0.0-0.4) % Neut % (Auto) 55.2 (45-73) % Lymph % (Auto) 24.2 (20-40) % Wilkinson % (Auto) 5.8 (2-11) % Eos % (Auto) 14.3 H (0-4) % Baso % (Auto) 0.2 (0-2) % Lymph # (Auto) 2.3 (1.2-4.9) X10*3/uL Wilkinson # (Auto) 0.6 (0.1-1.2) X10*3/uL Eos # (Auto) 1.4 H (0.0-0.4) X10*3/uL Baso # (Auto) 0.0 (0.0-0.2) X10*3/uL Abs Immat Gran (auto) 0.03 (0.00-0.03) X10*3/uL Absolute Neuts (auto) 5.2 (2.0-8.3) x10*3/uL Absolute Nucleated RBC 0.000 (0.0-0.012) X10*3/uL Nucleated RBC % (auto) 0.0 (0.0-0.2) /100WBC Sodium 140 (135-145) mmol/L Potassium 4.8 (3.3-5.1) mmol/L Chloride 103 (96-108) mmol/L Carbon Dioxide 28 (22-29) mmol/L Anion Gap 14 (12-20) BUN 13 (9-16) mg/dL Creatinine 0.89 (0.5-1.4) mg/dL Estim Creat Clear Calc 128.1 Estimated GFR > 60 Random Glucose 109 (60-115) mg/dL Calcium 9.3 (8.4-10.2) mg/dL Total Bilirubin 0.3 (0.0-1.0) mg/dL AST 14 (5-37) U/L ALT 14 (0-40) U/L Alkaline Phosphatase 92 (39-117) U/L Troponin I High Sens (<3.5-35.0) ng/L B-Natriuretic Peptide (<100) pg/mL Total Protein 6.3 L (6.5-8.0) g/dL Albumin 4.0 (3.5-5.0) g/dL COVID-19 (VIVIAN) Negative (Negative) COVID-19 Clin Com See Note Influenza Type A (ALFREDA) (Negative) Influenza Type B (ALFREDA) (Negative) Influenza A & B Note S. pyogenes GrpA ALFREDA (Negative) 09/03/22 09/03/22 09/03/22 Range/Units 15:37 15:37 17:38 WBC (4.8-10.8) X10*3/uL RBC (4.60-5.80) X10*6/uL Hgb (14.0-18.0) g/dl Hct (42.0-52.0) % MCV (80.0-98.0) fL MCH (27.0-33.0) pg MCHC (31.0-36.0) g/dl RDW (11.0-16.0) % Plt Count (160-400) X10*3/uL MPV (9.4-12.4) fL Immature Gran % (Auto) (0.0-0.4) % Neut % (Auto) (45-73) % Lymph % (Auto) (20-40) % Wilkinson % (Auto) (2-11) % Eos % (Auto) (0-4) % Baso % (Auto) (0-2) % Lymph # (Auto) (1.2-4.9) X10*3/uL Wilkinson # (Auto) (0.1-1.2) X10*3/uL Eos # (Auto) (0.0-0.4) X10*3/uL Baso # (Auto) (0.0-0.2) X10*3/uL Abs Immat Gran (auto) (0.00-0.03) X10*3/uL Absolute Neuts (auto) (2.0-8.3) x10*3/uL Absolute Nucleated RBC (0.0-0.012) X10*3/uL Nucleated RBC % (auto) (0.0-0.2) /100WBC Sodium (135-145) mmol/L Potassium (3.3-5.1) mmol/L Chloride (96-108) mmol/L Carbon Dioxide (22-29) mmol/L Anion Gap (12-20) BUN (9-16) mg/dL Creatinine (0.5-1.4) mg/dL Estim Creat Clear Calc Estimated GFR Random Glucose (60-115) mg/dL Calcium (8.4-10.2) mg/dL Total Bilirubin (0.0-1.0) mg/dL AST (5-37) U/L ALT (0-40) U/L Alkaline Phosphatase (39-117) U/L Troponin I High Sens 5.6 (<3.5-35.0) ng/L B-Natriuretic Peptide 38 (<100) pg/mL Total Protein (6.5-8.0) g/dL Albumin (3.5-5.0) g/dL COVID-19 (VIVIAN) (Negative) COVID-19 Clin Com Influenza Type A (ALFREDA) Negative (Negative) Influenza Type B (ALFREDA) Negative (Negative) Influenza A & B Note See Note S. pyogenes GrpA ALFREDA (Negative) 02/26/23 Range/Units 17:55 WBC (4.8-10.8) X10*3/uL RBC (4.60-5.80) X10*6/uL Hgb (14.0-18.0) g/dl Hct (42.0-52.0) % MCV (80.0-98.0) fL MCH (27.0-33.0) pg MCHC (31.0-36.0) g/dl RDW (11.0-16.0) % Plt Count (160-400) X10*3/uL MPV (9.4-12.4) fL Immature Gran % (Auto) (0.0-0.4) % Neut % (Auto) (45-73) % Lymph % (Auto) (20-40) % Wilkinson % (Auto) (2-11) % Eos % (Auto) (0-4) % Baso % (Auto) (0-2) % Lymph # (Auto) (1.2-4.9) X10*3/uL Wilkinson # (Auto) (0.1-1.2) X10*3/uL Eos # (Auto) (0.0-0.4) X10*3/uL Baso # (Auto) (0.0-0.2) X10*3/uL Abs Immat Gran (auto) (0.00-0.03) X10*3/uL Absolute Neuts (auto) (2.0-8.3) x10*3/uL Absolute Nucleated RBC (0.0-0.012) X10*3/uL Nucleated RBC % (auto) (0.0-0.2) /100WBC Sodium (135-145) mmol/L Potassium (3.3-5.1) mmol/L Chloride (96-108) mmol/L Carbon Dioxide (22-29) mmol/L Anion Gap (12-20) BUN (9-16) mg/dL Creatinine (0.5-1.4) mg/dL Estim Creat Clear Calc Estimated GFR Random Glucose (60-115) mg/dL Calcium (8.4-10.2) mg/dL Total Bilirubin (0.0-1.0) mg/dL AST (5-37) U/L ALT (0-40) U/L Alkaline Phosphatase (39-117) U/L Troponin I High Sens (<3.5-35.0) ng/L B-Natriuretic Peptide (<100) pg/mL Total Protein (6.5-8.0) g/dL Albumin (3.5-5.0) g/dL COVID-19 (VIVIAN) (Negative) COVID-19 Clin Com Influenza Type A (ALFREDA) (Negative) Influenza Type B (ALFREDA) (Negative) Influenza A & B Note S. pyogenes GrpA ALFREDA Negative (Negative) <CARMELA Irene - Last Filed: 09/04/22 04:12> Independent Interpretation I performed an independent interpretation of an: EKG <CARMELA Cortez - Last Filed: 09/03/22 17:40> Radiology Impression Discussion of test interpretation with radiology: I have reviewed the radiologist's reading. <CARMELA Cortez - Last Filed: 09/03/22 17:40> External Record Review External record reviewed: Outpatient record, Prior outpatient labs and Prior outpatient radiology <CARMELA Cortez - Last Filed: 09/03/22 17:40> Discharge Plan Discharge Clinical Impression: Bronchitis, Bradycardia <CARMELA Cortez - Last Filed: 09/03/22 17:40> Patient Disposition: Left Against Medical Advice <CARMELA Cortez - Last Filed: 09/03/22 17:40> Instructions: Acute Bronchitis (ED), Bradycardia (ED) <CARMELA Cortez - Last Filed: 09/03/22 17:40> Additional Instructions: X-RAY SHOWS RESOLVING PNEUMONIA. YOU TESTED NEGATIVE FOR COVID PREDNISONE THE STEROID PHASE TAKE PRESCRIBED, IN ADDITION USE ALBUTEROL INHALER FOR SHORTNESS OF BREATH/WHEEZING. FLONASE IS A NASAL DECONGESTANT. TESSALON PERLES FOR COUGH, USE NEEDED PLEASE FOLLOW-UP WITH HER DOCTOR. IF SYMPTOMS PERSIST OR WORSEN RETURN TO THE ED. return to the ED immediately for any chest pain, shortness of breath, leg swelling, calf pain, coughing up blood, or any other concerning symptoms. He refused a repeat troponin return to the ED immediately for any abnormal symptoms. <CARMELA Cortez - Last Filed: 09/03/22 17:40> Prescriptions: New albuterol sulfate 90 mcg/actuation HFA aerosol inhaler 2 puff inhalation Q4-6H PRN (Reason: shortness of breath or wheezing) Qty: 6.7 0RF benzonatate 100 mg capsule 100 mg PO TID PRN (Reason: cough) Qty: 14 0RF fluticasone propionate [Flonase Allergy Relief] 50 mcg/actuation spray,suspension 2 spray intranasal DAILY Qty: 16 0RF Rx Instructions: administer into each nostril prednisone 20 mg tablet 40 mg PO DAILY 5 Days Qty: 10 0RF No Action levofloxacin 750 mg tablet 750 mg PO DAILY Qty: 10 0RF quetiapine [Seroquel XR] 50 mg tablet extended release 24 hr 50 mg PO BEDTIME Qty: 7 0RF lorazepam 1 mg tablet 1 mg PO BEDTIME PRN (Reason: imsomnia) Qty: 2 0RF doxycycline hyclate 100 mg capsule 100 mg PO BID 7 Days Qty: 14 0RF amoxicillin 500 mg capsule 500 mg PO Q8H Qty: 21 0RF <CARMELA Cortez - Last Filed: 09/03/22 17:40> Referrals: Physician,Unknown J [Primary Care Provider] - 3 days <CARMELA Cortez - Last Filed: 09/03/22 17:40> Stand Alone Forms: Against Medical Advice <CARMELA Cortez - Last Filed: 09/03/22 17:40> Interventions: ED Discharge Assessment Last Done: 09/03/22 21:54 <CARMELA Cortez - Last Filed: 09/03/22 17:40> Discharge Date/Time: 09/03/22 21:55 <CARMELA Cortez - Last Filed: 09/03/22 17:40> Print Language: Turkish <CARMELA Cortez - Last Filed: 09/03/22 17:40>
--- NOTE | 2022-09-03 16:34 | ECG_ITS ---
Test Reason : DYSPNEA Blood Pressure : / mmHG Vent. Rate : 046 BPM Atrial Rate : 046 BPM P-R Int : 148 ms QRS Dur : 104 ms QT Int : 468 ms P-R-T Axes : 043 044 005 degrees QTc Int : 409 ms Sinus bradycardia Nonspecific ST and T wave abnormality Abnormal ECG When compared with ECG of 26-AUG-2022 09:06, No significant change was found Referred By: Marnie Ren Electronically Signed By:AYDE ARAYA MD
[2022-09-03] MEDS: Albuterol Sulfate 90 MCG 8 GM INHALER 4 PUFF INHALE (16:48)
[2022-09-03 17:23] LABS: B Type Natriuretic Peptide 38 pg/mL (<100)
[2022-09-03] MEDS: 0.9 % Sodium Chloride 1,000 ML 999 ML IV (17:40)
[2022-09-03] MEDS: predniSONE 20 MG TABLET 40 MG PO (17:43)
--- NOTE | 2022-09-03 17:44 | PC.NURSE ---
pt a&ox3, vss, 20G placed left wrist, labs drawn, 1L NS running, medicated per provider order.
[2022-09-03 18:00] VITALS: BP 117/44; PULSE 44; RESP 15; TEMP 36.7; O2SAT 98
[2022-09-03 18:12] LABS: Troponin-I High Sensitivity 5.6 ng/L (<3.5-35.0)
[2022-09-03 18:18] LABS: IDNOW Serial# 6674DD1D; Strep A Nucleic Acid Negative (Negative)
--- NOTE | 2022-09-03 18:19 | ECG_ITS ---
Test Reason : REPEAT Blood Pressure : / mmHG Vent. Rate : 046 BPM Atrial Rate : 046 BPM P-R Int : 150 ms QRS Dur : 104 ms QT Int : 480 ms P-R-T Axes : 041 055 010 degrees QTc Int : 420 ms Sinus bradycardia Otherwise normal ECG When compared with ECG of 03-SEP-2022 17:14, No significant change was found Referred By: Andrew Stern Electronically Signed By:AYDE ARAYA MD
[2022-09-03 19:48] VITALS: PULSE 47; RESP 15
[2022-09-03 20:00] VITALS: PULSE 59; RESP 18
--- NOTE | 2022-09-03 21:53 | PC.NURSE ---
pt declined repeat troponin, discharged AMA.
== END 2022-09-03 21:55 | disposition left against medical advice (07) ==
PROVIDERS: Physician Assistant; Emergency Provider Emergency Medicine Emergency Medical Services
DX: R06.02 Shortness of breath (principal); R00.1 Bradycardia, unspecified; Z20.822 Contact with and (suspected) exposure to COVID-19; Z20.828 Contact with and (suspected) exposure to other viral communicable diseases; Z79.899 Other long term (current) drug therapy
CPT/HCPCS: 71046; 80053; 83880; 84484; 85025; 87502; 87635; 87651; 93005; 94640; 96360; 99284

== ENCOUNTER 2023-05-14 06:30 | Emergency (ER) | payer MEDICAID, SELFPAY ==
--- NOTE | ~2023-05-14 | XR_ITS ---
EXAMINATION: XR CHEST CLINICAL INFORMATION: Dyspnea. COMPARISON: 09/03/2022 TECHNIQUE: 2 views of the chest were obtained. FINDINGS: The lungs are moderately expanded. There are stable dense opacities projecting over the right upper lung zone. No focal consolidation. Possible 9 mm nodule projecting over the left heart border on the frontal projection. No pleural effusion. Cardiac silhouette is unchanged. XR/XR chest 2V IMPRESSION: Possible 9 mm nodule projecting over the left heart border. Consider chest CT for further evaluation
[2023-05-14 06:35] VITALS: BP 124/72; PULSE 54; RESP 18; TEMP 36.8; O2SAT 99; BMI 29.2
[2023-05-14 07:10] VITALS: BP 118/62; PULSE 53; RESP 16; TEMP 36.5; O2SAT 97
--- NOTE | 2023-05-14 07:39 | ED.URI ---
HPI - URI/Sore Throat General Chief Complaint: Upper Respiratory Symptoms Stated Complaint: SoB Time Seen by Provider: 05/14/23 07:10 Source: patient Mode of arrival: ambulatory Limitations: no limitations History of Present Illness HPI Narrative: This is a 47 years old smoker presented complaining of upper respiratory infection, cough congestion, the cough is productive of yellow sputum. Denies any fever chills MD elicited complaint: cough Pertinent past history: other (smoker) Onset (ago): day(s) (3) Severity: moderate Exacerbating factors: nothing Relieving factors: nothing Associated symptoms: denies other symptoms Related Data Home Medications Medication Instructions Recorded Confirmed clonidine HCl 0.1 mg tablet 0.1 mg PO BEDTIME 12/15/22 Previous Rx's Medication Instructions Recorded lorazepam 1 mg tablet 1 mg PO BEDTIME PRN imsomnia #2 02/16/22 tabs quetiapine 50 mg tablet,extended 50 mg PO BEDTIME #7 tabs 02/16/22 release 24 hr (Seroquel XR) amoxicillin 500 mg capsule 500 mg PO BID #14 caps 12/15/22 doxycycline monohydrate 100 mg 100 mg PO BID #14 caps 05/14/23 capsule (Monodox) Allergies Allergy/AdvReac Type Severity Reaction Status Date / Time aspirin [ASA] AdvReac Mild NAUSEA Verified 05/14/23 06:39 aspirin Allergy Unknown Nausea Uncoded 12/17/22 21:51 Review of Systems Constitutional: Constitutional: Reports no additional constitutional complaints ENT: Reports system reviewed and no additional complaints, except as documented Cardiovascular: Cardiovascular: Reports no additional cardiovascular complaints Respiratory: Respiratory: Reports pain with cough PMFSH Past Medical History Medical History Substance abuse Hypoglycemia Surgical History History of tonsillectomy Hx of appendectomy Previous back surgery Social History Social History Alcohol intake: current Alcohol intake frequency: holidays/special occasions only Patient Tobacco Use Status: Current everyday Tobacco user Smoked in Last 30 Days: Yes Use of substances other than those prescribed or required for medical reasons: No Advance Directives: No Advance Directives Information Provided: Yes Physical Exam Vital Signs: Vital Signs: Last Vital Signs Temp 97.7 F 05/14/23 07:10 Pulse 53 05/14/23 07:10 Resp 16 05/14/23 07:10 BP 118/62 05/14/23 07:10 Pulse Ox 97 05/14/23 07:10 O2 Del Method Room Air 05/14/23 07:10 BMI result Body Mass Index 29.2 Const: General: cooperative Nutritional Appearance: well nourished Orientation/consciousness: patient oriented x3 Limitations: no limitations HEENT: Head: Yes normal to inspection General nose exam: Normal external nose present Neck: Neck: Yes full ROM Chest: Chest palpation & inspection: normal inspection of the chest Resp: Effort & Inspection: normal respiratory effort and able to speak in complete sentences Auscultation: rhonchi Cardio: Jugular venous distension: no JVD Rate: regular rate Rhythm: regular rhythm GI: Inspection: Yes normal to inspection Palpation (GI): Soft to palpation, nontender and no guarding Skin: General skin exam: no rashes or lesions noted, elasticity normal and turgor normal Neuro: General: patient oriented x3 Course Reevaluation(s) Reevaluation #1: Remains stable O2 sat is 97% on room air, respiration rate is 16 he is afebrile and no toxic. Time: 09:03 Reevaluation #2: Patient was told about the possible 9 mm nodule in the left lung field, he will follow-up with the primary care physician he knows that he may need a CT scan as outpatient versus repeat chest x-ray in 1 month or 2. Medical Decision Making Medical Decision Making MDM Narrative: Patient presented to the emergency department complaining of cough congestion pleural to yellow sputum will obtain a chest x-ray RSV COVID then reassessed Differential Diagnosis Differential Diagnoses: The differential diagnosis associated with the presentation includes Pneumonia/ bronchitis/COVID Admission/Observation Consideration of admission/observation: Escalation of care including admission/observation considered Lab Data MDM Lab Attestation statement: I reviewed the patient's lab results. Labs: Lab Results 05/14/23 05/14/23 Range/Units 07:18 07:41 COVID-19 (VIVIAN) Negative (Negative) COVID-19 Clin Com See Note Influenza Type A (ALFREDA) Negative (Negative) Influenza Type B (ALFREDA) Negative (Negative) Influenza A & B Note See Note S. pyogenes GrpA ALFREDA Negative (Negative) Independent Interpretation I performed an independent interpretation of an: Plain X-Ray Interpretation: No pneumonia Radiology Impression Discussion of test interpretation with radiology: I have reviewed the radiologist's reading. Radiologist Impression: TECHNIQUE: 2 views of the chest were obtained. FINDINGS: The lungs are moderately expanded. There are stable dense opacities projecting over the right upper lung zone. No focal consolidation. Possible 9 mm nodule projecting over the left heart border on the frontal projection. No pleural effusion. Cardiac silhouette is unchanged. XR/XR chest 2V IMPRESSION: Possible 9 mm nodule projecting over the left heart border. Consider chest CT for further evaluation Dictated By: Matthew Bravo MD Signed By: <Electronically signed by Matthew Bravo MD in [place]> 05/14/23 0757 DD/ Discharge Plan Discharge Clinical Impression: Acute purulent bronchitis Patient Disposition: Home, Self-Care Instructions: Acute Bronchitis (ED) Additional Instructions: You x-ray was read negative for pneumonia . You have possible nodule in the left lung, follow-up with primary care physician you may need outpatient CT scan Prescriptions: New doxycycline monohydrate [Monodox] 100 mg capsule 100 mg PO BID Qty: 14 0RF No Action quetiapine [Seroquel XR] 50 mg tablet extended release 24 hr 50 mg PO BEDTIME Qty: 7 0RF lorazepam 1 mg tablet 1 mg PO BEDTIME PRN (Reason: imsomnia) Qty: 2 0RF clonidine HCl 0.1 mg tablet 0.1 mg PO BEDTIME amoxicillin 500 mg capsule 500 mg PO BID Qty: 14 0RF Referrals: Shu Malik NP [Primary Care Provider] - 2 days
[2023-05-14 07:41] LABS: COVID-19 Test Negative (Negative); IDNOW Serial# 08D9AD1C; IDNOW Serial# BCCEAD1C; Influenza A Negative (Negative); Influenza B2 Negative (Negative)
[2023-05-14 07:54] LABS: IDNOW Serial# 08D9AD1C; Strep A Nucleic Acid Negative (Negative)
== END 2023-05-14 09:22 | disposition home or self-care (01) ==
PROVIDERS: Emergency Provider Emergency Medicine; PCP Nurse Practitioner Family
DX: J41.1 Mucopurulent chronic bronchitis (principal); R06.02 Shortness of breath; R05.9 Cough, unspecified; Z11.52 Encounter for screening for COVID-19; Z20.822 Contact with and (suspected) exposure to COVID-19
CPT/HCPCS: 71046; 87502; 87635; 87651; 99283; 99284

== ENCOUNTER 2023-10-21 17:48 | Emergency (ER) | payer MEDICAID, SELFPAY ==
--- NOTE | ~2023-10-21 | XR_ITS ---
EXAMINATION: XR CHEST CLINICAL INFORMATION: Shortness of breath. Cough. COMPARISON: Chest radiograph dated 05/14/2023. Chest radiograph dated 09/03/2022. TECHNIQUE: 2 views of the chest were obtained. FINDINGS: The trachea is in normal anatomic position. The cardiac silhouette is normal in size. There are stable dense opacities projecting over the right upper lung. There are streaky left lower lobe opacities which may represent subsegmental atelectasis. No dense consolidation. No pleural effusion. No pneumothorax. No acute osseous abnormality. XR/XR chest 2V IMPRESSION: Streaky left lower lobe opacities may represent subsegmental atelectasis. Chronic hyperdense nodules projecting over the right upper lobe.
--- NOTE | 2023-10-21 17:50 | ECG_ITS ---
Test Reason : CP Blood Pressure : / mmHG Vent. Rate : 101 BPM Atrial Rate : 101 BPM P-R Int : 116 ms QRS Dur : 094 ms QT Int : 342 ms P-R-T Axes : 053 077 012 degrees QTc Int : 443 ms Sinus tachycardia Otherwise normal ECG When compared with ECG of 03-SEP-2022 18:34, Vent. rate has increased BY 55 BPM T wave inversion no longer evident in Anterior leads Referred By: Ludivina Renee Electronically Signed By:LILLIAN MCBRIDE
[2023-10-21 17:52] VITALS: BP 156/92; PULSE 99; RESP 20; TEMP 36.7; O2SAT 92; BMI 29.3
--- NOTE | 2023-10-21 17:56 | ED.CHESTPAIN ---
HPI - Chest Pain General Chief Complaint: Dyspnea Stated Complaint: shortness of breath, chest tightness/ pressure Time Seen by Provider: 10/21/23 18:01 Source: patient Mode of arrival: ambulatory Limitations: no limitations History of Present Illness HPI narrative: Patient is a 47-year-old male presenting to emergency department for evaluation of shortness of breath, bilateral rib pain x few weeks in the setting of recent upper respiratory illness with cough, nasal congestion, and new onset of fever and shaking chills yesterday and today.. Evaluated at urgent care 2 weeks ago, given prednisone and an inhaler with minimal improvement. Related Data Home Medications ?Medication ?Instructions ?Recorded ?Confirmed clonidine HCl 0.1 mg tablet 0.1 mg PO BEDTIME 12/15/22 Previous Rx's ?Medication ?Instructions ?Recorded lorazepam 1 mg tablet 1 mg PO BEDTIME PRN imsomnia #2 02/16/22 tabs quetiapine 50 mg tablet,extended 50 mg PO BEDTIME #7 tabs 02/16/22 release 24 hr (Seroquel XR) amoxicillin 500 mg capsule 500 mg PO BID #14 caps 12/15/22 doxycycline monohydrate 100 mg 100 mg PO BID #14 caps 05/14/23 capsule (Monodox) doxycycline hyclate 100 mg capsule 100 mg PO BID #13 caps 10/21/23 Allergies Allergy/AdvReac Type Severity Reaction Status Date / Time aspirin [ASA] AdvReac Mild NAUSEA Verified 10/21/23 17:58 aspirin Allergy Unknown Nausea Uncoded 10/21/23 17:58 Review of Systems Review of Systems: Yes all other systems are reviewed and are negative PMFSH Past Medical History Attestation statement: The following information was validated with the patient. Source: old records reviewed Medical History Substance abuse Hypoglycemia Surgical History History of tonsillectomy Hx of appendectomy Previous back surgery Social History Social History Alcohol intake: current Alcohol intake frequency: holidays/special occasions only Patient Tobacco Use Status: Current everyday Tobacco user Physical Exam Vital Signs: Vital Signs: Last Vital Signs Temp 98.1 F 10/21/23 17:52 Pulse 99 10/21/23 17:52 Resp 20 10/21/23 17:52 BP 156/92 H 10/21/23 17:52 Pulse Ox 92 10/21/23 17:52 O2 Del Method Room Air 10/21/23 17:52 BMI result Body Mass Index 29.3 Appearance: Alert.?Oriented to person, place and time. No acute distress.?Normal affect. Eyes: Pupils equal, round and reactive to light.? ENT: Pharynx normal.?? Neck: Normal inspection.? Neck supple.?? CVS: Heart sounds normal. Normal heart rate and rhythm.? Pulses normal.?? Respiratory: No respiratory distress.? Lung sounds with rhonchi and mild expiratory wheezing bilaterally, diminished to the left lower lobe. ? Abdomen: Soft and non-tender. Normoactive bowel sounds.? Skin: Skin warm and dry.? Normal skin color.? Extremities: No lower extremity edema.? No calf ttp? Neuro: Moves all extremities spontaneously. Sensation intact bilaterally. Ambulates with normal steady gait. Course Course Course Narrative: Patient is a 47-year-old male presenting to emergency department for evaluation of shortness of breath, bilateral rib pain x few weeks in the setting of recent upper respiratory illness with cough, nasal congestion, and new onset of fever and shaking chills yesterday and today.. Evaluated at urgent care 2 weeks ago, given prednisone and an inhaler with minimal improvement. Procedures Smoking Cessation Time Spent Discussing Smoking Cessation w/Patient (min): 5 Patient Acknowledges Need for Cessation: Yes Additional Comments: Actively trying to achieve smoking cessation placement smoking only a few cigarettes daily. Medical Decision Making Medical Decision Making MDM Narrative: Patient is a 47-year-old male, presenting for evaluation of upper respiratory symptoms, chest pain described as tightness, and shortness of breath. Over all he appears well, nontoxic, afebrile. No respiratory distress. He has O2 saturation low 90s on room air, speaking clear full sentences. He has rhonchi bilaterally mild expiratory wheezing, diminished lung sounds in the left lower lobe. Given his duration of illness, will obtain chest x-ray in addition to viral testing. EKG was obtained due to chest pain, clinically have low suspicion for ACS/arrhythmia, is without acute ischemic abnormalities. COVID-19/influenza/RSV testing is negative. CXR reveals streaky left lower lobe opacity diminished in this area, given duration of illness, concern for community-acquired pneumonia, prescription for doxycycline was sent to pharmacy and he received his initial base while in the emergency department. Advised to follow-up with primary care provider as needed, discussed reasons to return back to the emergency department. All questions were answered. Patient discharged home in stable condition. Differential Diagnosis Differential Diagnoses: The differential diagnosis associated with the presentation includes (See narrative above) Lab Data MDM Lab Attestation statement: I reviewed the patient's lab results. (See narrative above) Labs: Lab Results 10/21/23 Range/Units 18:10 Influenza Type A (PCR) NEGATIVE (Negative) Influenza Type B (PCR) NEGATIVE (Negative) RSV RNA Qual (PCR) NEGATIVE (Negative) SARS-CoV-2 RNA (RT-PCR) NEGATIVE (Negative) Independent Interpretation I performed an independent interpretation of an: EKG and Plain X-Ray Interpretation: Rate: 101 Rhythm:? Sinus tachycardia Normal P waves.? Normal TIM.?? Normal QRS complex.?? ST T wave :??No ST elevation, no ST depression, no T-wave inversion qTC:443 Prior studies: August 2022 The study has been interpreted contemporaneously by me. Radiology Impression Discussion of test interpretation with radiology: I have reviewed the radiologist's reading. Radiologist Impression: XR/XR chest 2V IMPRESSION: Streaky left lower lobe opacities may represent subsegmental atelectasis. Chronic hyperdense nodules projecting over the right upper lobe. External Record Review External record reviewed: Outpatient record Prescription Management I considered prescription management with: Pain Medication (Acetaminophen/ibuprofen) and Antibiotic Discharge Plan Discharge Clinical Impression: Community acquired pneumonia Patient Disposition: Home, Self-Care Instructions: Pneumonia (ED) Additional Instructions: Complete the entire course of antibiotics as prescribed. Continue taking inhalers as previously prescribed. On doxycycline, do not take pills immediately before going to bed and swallow pills with plenty of water. Avoid direct sunlight, iron, antacids, and Pepto Bismol. Call your provider if you develop new ringing in your ears, new problems hearing, dizziness, difficulty swallowing, rash, abdominal discomfort, nausea, or diarrhea.? Follow-up with your PCP. Prescriptions: New doxycycline hyclate 100 mg capsule 100 mg PO BID Qty: 13 0RF No Action quetiapine [Seroquel XR] 50 mg tablet extended release 24 hr 50 mg PO BEDTIME Qty: 7 0RF lorazepam 1 mg tablet 1 mg PO BEDTIME PRN (Reason: imsomnia) Qty: 2 0RF doxycycline monohydrate [Monodox] 100 mg capsule 100 mg PO BID Qty: 14 0RF clonidine HCl 0.1 mg tablet 0.1 mg PO BEDTIME amoxicillin 500 mg capsule 500 mg PO BID Qty: 14 0RF Referrals: Physician,None [Primary Care Provider] - Print Language: Gambian
[2023-10-21 19:04] LABS: Influenza A PCR NEGATIVE (Negative); Influenza B PCR NEGATIVE (Negative); Resp Syncy Virus RNA Qual PCR NEGATIVE (Negative); SARS COV2 PCR INHOUSE NEGATIVE (Negative)
[2023-10-21] MEDS: Doxycycline Monohydrate 100 MG CAPSULE PO (19:51)
[2023-10-21 19:57] VITALS: BP 137/81; PULSE 100; RESP 20; TEMP 36.8; O2SAT 94
== END 2023-10-21 20:08 | disposition home or self-care (01) ==
PROVIDERS: Nurse Practitioner Family; Emergency Provider Emergency Medicine
DX: J18.9 Pneumonia, unspecified organism (principal); F17.210 Nicotine dependence, cigarettes, uncomplicated; Z71.6 Tobacco abuse counseling
CPT/HCPCS: 0241U; 71046; 93005; 99283

== ENCOUNTER → 2023-10-21 17:50 | Outpatient (BNV) | payer MEDICAID, SELFPAY | PROVIDERS: Emergency Provider Emergency Medicine; Visit Provider Internal Medicine | DX: R00.0 Tachycardia, unspecified (principal); R07.9 Chest pain, unspecified | CPT/HCPCS: 93010 ==

== ENCOUNTER 2024-01-18 08:04 | Outpatient (REF) | payer MEDICAID, SELFPAY ==
--- NOTE | ~2024-01-18 | CT_ITS ---
EXAMINATION: CT CHEST WITH CONTRAST CLINICAL INFORMATION: Follow-up examination from prior [facility] chest 10/07/2020. Shortness of breath. History of granulomatous disease. COMPARISON: Chest CT dated 05/12/2014. Chest x-ray 10/21/2023. TECHNIQUE: Multidetector volumetric CT imaging of the chest was obtained after the administration of 50 mL of Omnipaque 350 intravenous contrast without immediate adverse reactions. Axial MIP volume rendering provided. Sagittal and coronal reformatted images were obtained. This CT examination was performed using dose optimization techniques as appropriate, variously including the following: *Automated exposure control *Adjustment of mA and/or kV according to patient size (this includes techniques or standardized protocols for targeted exams where dose is matched to indication/reason for exam; i.e. extremities or head) *Use of iterative reconstruction technique DLP: 161 mGy-cm FINDINGS: LUNGS: -Mild limitation due to respiratory motion artifact in the mid and lower lung regions. -Previously seen extensive consolidations in the lower lobes, and bilateral scattered groundglass tree-in-bud and centrilobular nodular opacities have resolved. -There are lobulated calcified granulomas in the lateral right apex, posterior segment right upper lobe, superior segment left lower lobe posterolaterally, lateral right middle lobe, lingula, and subpleural posterior basal left lower lobe, all stable from 2014. -There is mild centrilobular emphysema present. -There are mild secretions within both in stem bronchi and the posterior trachea. -Small airways are mildly thickened diffusely suggesting chronic bronchitis. No significant endobronchial mucous plugging, and there is only minimal bronchiectasis present. -Foci of scarring in the anterior right upper lobe near the apex, posterior segment right upper lobe abutting the major fissure with mild fissural retraction, inferior lateral lingula, and posterior basal segments left lower lobe. -A few tiny scattered granulomata are present in both lungs. -There are no new or enlarging pulmonary nodules. There is no active lung disease identified. -There is no pleural effusion. MEDIASTINUM: -The imaged thyroid is normal. -The aorta is normal in caliber and course. -Main pulmonary artery is prominent, measuring 3.3 cm, not abnormally dilated by size criteria. -Mild thickening of the esophagus is present which could suggest esophagitis. -There is no suspicious mediastinal or hilar lymphadenopathy. There are subcentimeter small nodes, reactive. -Heart is at the upper limits of normal in size. In particular, the left ventricular cavity appears slightly prominent. -There is no pericardial effusion. CORONARY CALCIFICATIONS: Mild LAD calcifications are evident. AXILLA/CHEST WALL: There is moderate bilateral male gynecomastia. No masses or lymphadenopathy present UPPER ABDOMEN: Unremarkable OSSEOUS STRUCTURES: There is no lytic or blastic bone lesion. Mild degenerative spondylosis of the spine. There is an enostosis in the left scapula. CT/CT chest w IV con IMPRESSION: 1. Stable findings of prior granulomatous disease with scattered prominent calcified granulomata and associated regions of focal scarring. 2. No new nodules or enlarging nodules. 3. Mild centrilobular emphysema present. No active superimposed lung disease. 4. Minimal thickening of the small airways, suggesting chronic bronchitis. Minimal bronchiectasis is present. 5. Moderate bilateral male gynecomastia. 6. Additional ancillary findings as discussed in the body of the report. Fleischner guidelines were followed.
[2024-01-18] MEDS: iohexoL 350 MG/ML 100 ML INFUS..BTL 65 ML IV (08:51)
== END 2024-01-18 08:05 | disposition home or self-care (01) ==
LOC: HO.CT 08:04
PROVIDERS: PCP Registered Nurse; Visit Provider Registered Nurse
DX: R91.1 Solitary pulmonary nodule (principal); R06.02 Shortness of breath; F17.210 Nicotine dependence, cigarettes, uncomplicated
CPT/HCPCS: 71260; Q9967

== ENCOUNTER → 2024-01-18 08:06 | Outpatient (BNV) | payer MEDICAID, SELFPAY | PROVIDERS: PCP Registered Nurse; Visit Provider Radiology Diagnostic Radiology | DX: R91.1 Solitary pulmonary nodule (principal) | CPT/HCPCS: 71260 ==

== ENCOUNTER 2025-02-11 08:08 | Emergency (ER) | payer OTHER, SELFPAY ==
--- NOTE | ~2025-02-11 | CT_ITS ---
EXAMINATION: CT ABDOMEN AND PELVIS WITH CONTRAST CLINICAL INFORMATION: Abdominal pain COMPARISON: CT abdomen and pelvis with IV contrast 03/17/2017 TECHNIQUE: Multidetector volumetric images were obtained from the superior aspect of the liver through the pubic symphysis following administration 85 mL of Omnipaque 350 intravenous contrast. Sagittal and coronal reformatted images were obtained on the technologist's workstation. Oral contrast: No This CT examination was performed using dose optimization techniques as appropriate, variously including the following: *Automated exposure control *Adjustment of mA and/or kV according to patient size (this includes techniques or standardized protocols for targeted exams where dose is matched to indication/reason for exam; i.e. extremities or head) *Use of iterative reconstruction technique FINDINGS: LUNG BASES: There is patchy atelectatic changes in left lung base. Heart size is normal. LIVER, GALLBLADDER, AND BILIARY TREE: The liver is normal in size, shape, and attenuation. No focal hepatic lesion or biliary ductal dilatation is present. The gallbladder is unremarkable with no evidence of radiopaque gallstones, gallbladder wall thickening, or obvious pericholecystic inflammatory changes. PANCREAS: Unremarkable. SPLEEN: Unremarkable. ADRENAL GLANDS: Unremarkable. KIDNEYS AND URETERS: The kidneys are normal in size, shape, and attenuation. No hydronephrosis, hydroureter, or calculi seen. No perinephric stranding. BLADDER: Unremarkable. GASTROINTESTINAL TRACT: There is scattered stool and gas seen in colon without distention. Small bowel loops are normal caliber. Appendix has been surgically removed. There is no free air or free fluid. ABDOMINAL WALL: No significant hernia is appreciated. LYMPH NODES: Normal. VASCULAR: Unremarkable. PELVIC VISCERA: Unremarkable. OSSEOUS STRUCTURES: Mild degenerative disc changes L3-4, L4-5 and L5-S1 disc levels. No aggressive lytic or sclerotic process seen. CT/CT abdomen pelvis w IV con IMPRESSION: No acute intra-abdominal process seen. Mild constipation without obstruction. Fleischner guidelines were followed. Electronically signed by: Scott Doan MD 02/11/2025 10:31 AM EDT
[2025-02-11 08:14] VITALS: BP 145/63; PULSE 80; RESP 18; TEMP 36.6; O2SAT 99; BMI 30.2
--- NOTE | 2025-02-11 08:36 | MHC.EDTECH ---
attempted to obtained a urine pt stated he urinated prior to coming back into the room. Patient is aware cup/wipe at bedside as a reminder.
[2025-02-11 09:01] LABS: MANUAL DIFF FLAG NO
--- NOTE | 2025-02-11 09:03 | ED_ITS ---
HPI - General Adult General Chief complaint: Abdominal Pain Stated complaint: Severe Hernia, Urinating blood, vomiting Time Seen by Provider: 02/11/25 08:59 Source: patient Mode of arrival: ambulatory Limitations: no limitations History of Present Illness ED Provider: Shazia Vizcaino PA-C HPI narrative: Patient is a 49 year old assigned male at with a history of a right sided inguinal hernia presenting to the emergency department today with worsening abdominal pain and hematuria. Patient states that over the last month and a half he's had worsening right sided abdominal pain that he believes is from his known inguinal hernia but he isn't sure. Patient states that he had a recent lapse in insurance and delayed getting his hernia further evaluated until now because now he has insurance again. Patient states he has blood in his urine over the last day that is new for him. Patient denies any dizziness, lightheadedness, nausea, vomiting, fever, chills, blurry vision, double vision, loss of vision, chest pain, difficulty breathing, shortness of breath, back pain, night sweats, pain with urination, increased urinary frequency, increased urinary urgency, blood in his stool, syncope or a near syncopal episode, recent trauma or falls, bowel incontinence, bladder incontinence, or any other complaints at this time. Relieving factors: none Exacerbating factors: none Associated symptoms: denies other symptoms Treatments prior to arrival: none Related Data Home Medications ?Medication ?Instructions ?Recorded ?Confirmed clonidine HCl 0.1 mg tablet 0.1 mg PO BEDTIME 12/15/22 Previous Rx's ?Medication ?Instructions ?Recorded lorazepam 1 mg tablet 1 mg PO BEDTIME PRN imsomnia #2 02/16/22 tabs quetiapine 50 mg tablet,extended 50 mg PO BEDTIME #7 t abs 02/16/22 release 24 hr (Seroquel XR) amoxicillin 500 mg capsule 500 mg PO BID #14 caps 03/31 doxycycline monohydrate 100 mg 100 mg PO BID #14 caps 05/14/23 capsule (Monodox) doxycycline hyclate 100 mg capsule 100 mg PO BID #13 c aps 10/21/23 Allergies Allergy/AdvReac Type Severity Reaction Status Date / Time aspirin (ASA) AdvReac Mild NAUSEA Verified 02/11/25 08:16 aspirin Allergy Unknown Nausea Uncoded 02/11/25 08:16 Review of Systems 2 Constitutional: Constitutional: Reports no additional constitutional complaints, Denies chills, Denies fever(s) and Denies night sweats Eyes: Eyes: Reports no additional eye complaints, Denies blurry vision, Denies change in vision, Denies diplopia, Denies eye discharge, Denies loss of vision and Denies eye pain ENT: Denies dizziness Cardiovascular: Cardiovascular: Reports no additional cardiovascular complaints, Denies chest pain, Denies lightheadedness, Denies Loss of Consciousness and Denies dyspnea Respiratory: Respiratory: Reports no additional respiratory complaints and Denies dyspnea Gastrointestinal: Gastrointestinal: Reports no additional gastrointestinal complaints, Reports abdominal pain, Denies melena, Denies hematochezia, Denies change in bowel habits and Denies change in stool character Genitourinary: Genitourinary: Reports no additional male genitourinary complaints, Reports hematuria, Denies oliguria, Denies difficulty urinating, Denies dysuria, Denies urinary frequency, Denies urinary hesitancy, Denies urinary incontinence and Denies urinary urgency Musculoskeletal: Musculoskeletal: Reports no additional musculoskeletal complaints, Denies numbness and Denies tingling Neurologic: Denies dizziness, Denies loss of vision, Denies numbness and Denies tingling Psychiatric: Psychiatric: Reports no additional psychiatric complaints Endocrine: Endocrine: Reports no additional endocrine complaints Hematologic/Lymphatic: Hematologic/Lymphatic: Reports no additional hematologic/lymphatic complaints Allergic/Immunologic: Allergic/Immunologic: Reports no additional allergic/immunologic complaints [facility]LY [facility] Past Medical History Attestation statement: The following information was validated with the patient. Source: old records reviewed and nursing notes reviewed Medical History Substance abuse Hypoglycemia Surgical History History of tonsillectomy Hx of appendectomy Previous back surgery Social History Social History Alcohol intake: current Alcohol intake frequency: holidays/special occasions only Patient Tobacco Use Status: Current everyday Tobacco user Physical Exam ED Vital Signs: Vital Signs - 24 hr 02/11/25 08:14 02/11/25 11:22 Temperature 98 F 98 F Pulse Rate 80 59 Respiratory Rate 18 16 Blood Pressure 145/63 H 110/62 Pulse Oximetry 99 97 Oxygen Delivery Method Room Air Room Air BMI result Body Mass Index 30.2 Const General: cooperative, no acute distress, alert and awake Nutritional Appearance: well nourished Orientation/consciousness: patient oriented x3 HENMT Head: Yes normal to inspection and Yes atraumatic Ears: hearing grossly normal bilaterally and external ears normal General nose exam: Normal external nose present, no nasal discharge noted and no epistaxis Face and sinus: Yes normal facial exam, No abrasion and No laceration Mouth: Normal oral and palatal mucosa present, no drooling and no muffled voice Eyes General: appearance normal, both eyes and all related structures Periorbital: periorbital findings normal Eyelids: Yes eyelids normal Conjunctivae: conjunctivae normal Pupils: Equal, round and reactive pupils present EOM: EOMs intact bilaterally Neck Neck: Yes normal visual inspection, Yes full ROM and Yes no lymphadenopathy Resp Effort & Inspection: normal respiratory effort and able to speak in complete sentences Neuro General: patient oriented x3, moves all extremities and CN's II-XI intact bilaterally Cranial nerves: Yes Equal, round and reactive pupils present Cognition (Neuro): normal cognition Extrem General: Yes normal to inspection, Yes full ROM and Yes capillary refill normal Psych Appearance: grossly normal Mental Status: mental status grossly normal Affect: normal affect Attitude: cooperative Thought process: Normal thought process present Thought content: Normal thought content present Insight: Good insight present (Psych) Medications Administered Discontinued Medications Generic Name Dose Route Start Last Admin Trade Name Bhaveshq PRN Reason Stop Dose Admin Iohexol 100 ml 02/11/25 10:06 02/11/25 10:06 Iohexol 350 Mg/Ml 100 Ml Infus..Btl IV 02/11/25 10:07 85 ml ONCE ONE Administration Medical Decision Making Medical Decision Making [facility] Narrative: Patient is a 49 year old assigned male at with a history of a right sided inguinal hernia presenting to the emergency department today with worsening abdominal pain and hematuria. Patient's physical exam was unremarkable. Patient's blood work was unremarkable. Patient's urine showed no acute process. I explained my physical exam findings as well as all test results to the patient. I answered all questions asked by the patient. I did not appreciate a hernia on the patient's exam today however - this may be a reducible hernia that self-reduced. I stressed the importance of the patient taking his medication as directed (either prescribed or as the over the counter packaging recommends). I stressed the importance of the patient following up with his primary care provider. I stressed the importance of the patient returning to the emergency department immediately if his symptoms were to worsen or if he were to develop any dizziness, shortness of breath, difficulty breathing, chest pain, blurry vision, loss of vision, nausea, vomiting, abdominal pain, fever, chills, back pain, or any other complaints. Patient verbalized agreement and understanding with this treatment plan and discharge. Differential Diagnosis Differential Diagnoses: The differential diagnosis associated with the presentation includes Abdominal pain Hernia Admission/Observation Consideration of admission/observation: Escalation of care including admission/observation considered Patient would have been admitted to the hospital had his work up had any findings where hospital admission was appropriate and his clinical presentation warranted hospital admission. Lab Data [facility] Lab Attestation statement: I reviewed the patient's lab results. My interpretation of these results are in the [facility] Rationale portion of this note. 02/11/25 08:52 02/11/25 08:52 Labs: Lab Results 02/11/25 02/11/25 Range/Units 08:52 10:27 WBC 6.0 (4.8-10.8) X10*3/uL RBC 4.73 (4.60-5.80) X10*6/uL Hgb 14.5 (14.0-18.0) g/dl Hct 42.0 (42.0-52.0) % MCV 88.8 (80.0-98.0) fL MCH 30.7 (27.0-33.0) pg MCHC 34.5 (31.0-36.0) g/dl RDW 14.2 (11.0-16.0) % Plt Count 211 (160-400) X10*3/uL MPV 11.0 (9.4-12.4) fL Immature Gran % (Auto) 0.3 (0.0-0.4) % Neut % (Auto) 54.8 (45-73) % Lymph % (Auto) 35.4 (20-40) % [place] % (Auto) 7.5 (2-11) % Eos % (Auto) 1.8 (0-4) % Baso % (Auto) 0.2 (0-2) % Lymph # (Auto) 2.1 (1.2-4.9) X10*3/uL [place] # (Auto) 0.5 (0.1-1.2) X10*3/uL Eos # (Auto) 0.1 (0.0-0.4) X10*3/uL Baso # (Auto) 0.0 (0.0-0.2) X10*3/uL Abs Immat Gran (auto) 0.02 (0.00-0.03) X10*3/uL Absolute Neuts (auto) 3.3 (2.0-8.3) x10*3/uL Absolute Nucleated RBC 0.000 (0.0-0.012) X10*3/uL Nucleated RBC % (auto) 0.0 (0.0-0.2) /100WBC Sodium 139 (135-145) mmol/L Potassium 4.1 (3.3-5.1) mmol/L Chloride 105 (96-108) mmol/L Carbon Dioxide 28 (22-29) mmol/L Anion Gap 10 L (12-20) BUN 10 (9-16) mg/dL Creatinine 0.90 (0.5-1.4) mg/dL Estim Creat Clear Calc 124.8 Estimated GFR > 60 Random Glucose 106 (60-115) mg/dL Calcium 8.8 (8.4-10.2) mg/dL Total Bilirubin 0.4 (0.0-1.0) mg/dL Direct Bilirubin 0.2 (0.0-0.5) mg/dL AST 32 (5-37) U/L ALT 44 H (0-40) U/L Alkaline Phosphatase 57 (39-117) U/L Total Protein 6.5 (6.5-8.0) g/dL Albumin 4.4 (3.5-5.0) g/dL Lipase 33 (8-78) U/L Urine Color Yellow Urine Appearance Clear Urine pH >= 9.0 (5.0-9.0) Ur Specific [place] >= 1.030 H (1.005-1.025) Urine Protein Trace (Neg-Trace) mg/dL Urine Glucose (UA) Negative (Negative) mg/dL Urine Ketones Negative (Negative) mg/dL Urine Blood Negative (Negative) Urine Nitrite Negative (Negative) Ur Leukocyte Esterase Negative (Negative) Independent Interpretation I performed an independent interpretation of an: CT Scan Interpretation: My interpretation is in agreement with the radiologist's impression of this imaging study. L Report Number: [id number]: Total DLP = 485.00 mGy-cm EXAMINATION: CT ABDOMEN AND PELVIS WITH CONTRAST CLINICAL INFORMATION: Abdominal pain COMPARISON: CT abdomen and pelvis with IV contrast 03/17/2017 TECHNIQUE: Multidetector volumetric images were obtained from the superior aspect of the liver through the pubic symphysis following administration 85 mL of Omnipaque 350 intravenous contrast. Sagittal and coronal reformatted images were obtained on the technologist's workstation. Oral contrast: No This CT examination was performed using dose optimization techniques as appropriate, variously including the following: *Automated exposure control *Adjustment of mA and/or kV according to patient size (this includes techniques or standardized protocols for targeted exams where dose is matched to indication/reason for exam; i.e. extremities or head) *Use of iterative reconstruction technique FINDINGS: LUNG BASES: There is patchy atelectatic changes in left lung base. Heart size is normal. LIVER, GALLBLADDER, AND BILIARY TREE: The liver is normal in size, shape, and attenuation. No focal hepatic lesion or biliary ductal dilatation is present. The gallbladder is unremarkable with no evidence of radiopaque gallstones, gallbladder wall thickening, or obvious pericholecystic inflammatory changes. PANCREAS: Unremarkable. SPLEEN: Unremarkable. ADRENAL GLANDS: Unremarkable. KIDNEYS AND URETERS: The kidneys are normal in size, shape, and attenuation. No hydronephrosis, hydroureter, or calculi seen. No perinephric stranding. BLADDER: Unremarkable. GASTROINTESTINAL TRACT: There is scattered stool and gas seen in colon without distention. Small bowel loops are normal caliber. Appendix has been surgically removed. There is no free air or free fluid. ABDOMINAL WALL: No significant hernia is appreciated. LYMPH NODES: Normal. VASCULAR: Unremarkable. PELVIC VISCERA: Unremarkable. OSSEOUS STRUCTURES: Mild degenerative disc changes L3-4, L4-5 and L5-S1 disc levels. No aggressive lytic or sclerotic process seen. CT/CT abdomen pelvis w IV con IMPRESSION: No acute intra-abdominal process seen. Mild constipation without obstruction. Fleischner guidelines were followed. Electronically signed by: Scott Doan MD 02/11/2025 10:31 AM EDT Dictated By: Scott Doan MD Signed By: Electronically signed by Scott Doan MD 02/11/25 1031 Radiology Impression Discussion of test interpretation with radiology: I have reviewed the radiologist's reading. Discharge Plan Discharge Clinical Impression: Abdominal pain Qualifiers: Abdominal location: generalized Qualified Code(s): R10.84 - Generalized abdominal pain Patient Disposition: Home, Self-Care Instructions: Abdominal Pain (ED) Additional Instructions: Follow up with a primary care provider. Return to the emergency department immediately if your symptoms worsen or if you develop any numbness, tingling, dizziness, shortness of breath, difficulty breathing, chest pain, blurry vision, loss of vision, nausea, vomiting, abdominal pain, fever, chills, back pain, or any other complaints. L If you do not have a primary care provider - call any of the below numbers to establish and follow up with a primary care provider. [facility] Primary Care ([place]) [phone] [place] [address], [address] [facility] Primary Care (2 [facility]) [phone] [place] [address], [address] [facility], [address] [facility] Primary Care ([address] [facility]) [phone] [place] [address], [address] [facility], [address] [facility] Primary Care ([place]) [phone] [place] [address] [facility], [address] [facility] Family Medicine [phone] [place] [address], [address] Please see the information below about our Patient Portal. If you are not yet enrolled in the [facility] Patient Portal, you will receive an enrollment email invitation following your visit to any [facility] ED setting. You may also self-enroll in the Patient Portal by visiting our website: [email or web address] The following information is required to access the Patient Portal: - Your [facility] Medical Record Number - Your personal home email address (must match what is in your electronic medical record, Registration staff can assist with this) - Name - Date of Capabilities of the Patient Portal: - Message some providers - View upcoming appointments - Access your health summary, medical history, and visit history - View current conditions and allergies - View procedure and lab results - View your medications, including guidelines, side effects, and precautions - Complete pre-appointment questionnaires requested by your provider - Ready summary reports of your office visits and procedures To access the Patient Portal Mobile Madhav, follow these directions: - Search [employer] in the Madhav Store or [employer] Store - Download the Madhav - Search for [facility] - Enter your login/password Prescriptions: No Action quetiapine [Seroquel XR] 50 mg tablet extended release 24 hr 50 mg PO BEDTIME Qty: 7 0RF lorazepam 1 mg tablet 1 mg PO BEDTIME PRN (Reason: imsomnia) Qty: 2 0RF doxycycline monohydrate [Monodox] 100 mg capsule 100 mg PO BID Qty: 14 0RF doxycycline hyclate 100 mg capsule 100 mg PO BID Qty: 13 0RF clonidine HCl 0.1 mg tablet 0.1 mg PO BEDTIME amoxicillin 500 mg capsule 500 mg PO BID Qty: 14 0RF Referrals: Aneglina Magana NP [Primary Care Provider, Internal Medicine] Interventions: ED Discharge Assessment Last Done: 02/11/25 11:22 Discharge Date/Time: 02/11/25 11:23 Print Language: Swiss
[2025-02-11 09:08] LABS: Hematocrit 42.0 % (42.0-52.0); Hemoglobin 14.5 g/dl (14.0-18.0); Imm Gran Abs Auto 0.02 X10*3/uL (0.00-0.03); Imm Gran Pct Auto 0.3 % (0.0-0.4); Lymphocytes Absolute Auto 2.1 X10*3/uL (1.2-4.9); Mean Corpuscular HGB Conc 34.5 g/dl (31.0-36.0); Mean Corpuscular Hemoglobin 30.7 pg (27.0-33.0); Mean Corpuscular Volume 88.8 fL (80.0-98.0); NRBC Abs Auto 0.000 X10*3/uL (0.0-0.012); NRBC Pct Auto 0.0 /100WBC (0.0-0.2); Platelet Count 211 X10*3/uL (160-400); Red Blood Count 4.73 X10*6/uL (4.60-5.80); White Blood Count 6.0 X10*3/uL (4.8-10.8)
[2025-02-11 09:18] LABS: Alanine Aminotransferase 44 U/L (0-40); Albumin Level 4.4 g/dL (3.5-5.0); Alkaline Phosphatase 57 U/L (39-117); Anion Gap 10 (12-20); Aspartate Amino Transferase 32 U/L (5-37); Blood Urea Nitrogen 10 mg/dL (9-16); Calcium 8.8 mg/dL (8.4-10.2); Carbon Dioxide 28 mmol/L (22-29); Chloride 105 mmol/L (96-108); Creatinine Clr Calc Pharmacy 124.8; Estimated Glomerular Filt Rate > 60; Lipase 33 U/L (8-78); Potassium 4.1 mmol/L (3.3-5.1); Sodium 139 mmol/L (135-145); Total Protein 6.5 g/dL (6.5-8.0)
[2025-02-11] MEDS: iohexoL 350 MG/ML 100 ML INFUS..BTL IV (10:06)
[2025-02-11 10:43] LABS: Appearance Urine Clear; Glucose Urine UA Negative (Negative); PH >= 9.0 (5.0-9.0); Specific Gravity - Urine >= 1.030 (1.005-1.025)
[2025-02-11 11:22] VITALS: BP 110/62; PULSE 59; RESP 16; TEMP 36.6; O2SAT 97
== END 2025-02-11 11:23 | disposition home or self-care (01) ==
PROVIDERS: Emergency Provider Emergency Medicine; PCP Nurse Practitioner Primary Care
DX: R10.84 Generalized abdominal pain (principal); R31.9 Hematuria, unspecified
CPT/HCPCS: 36415; 74177; 80048; 80076; 81003; 83690; 85025; 99284; Q9967

== ENCOUNTER → 2025-02-11 09:32 | Outpatient (BNV) | payer OTHER, SELFPAY | PROVIDERS: PCP Nurse Practitioner Primary Care; Visit Provider Radiology Diagnostic Radiology | DX: K59.00 Constipation, unspecified (principal) | CPT/HCPCS: 74177 ==

== ENCOUNTER 2025-03-02 10:30 | Outpatient (REF) | payer OTHER, SELFPAY ==
[2025-03-02 13:38] LABS: MANUAL DIFF FLAG NO
[2025-03-02 13:57] LABS: Hematocrit 43.8 % (42.0-52.0); Hemoglobin 14.3 g/dl (14.0-18.0); Imm Gran Abs Auto 0.01 X10*3/uL (0.00-0.03); Imm Gran Pct Auto 0.2 % (0.0-0.4); Lymphocytes Absolute Auto 1.8 X10*3/uL (1.2-4.9); Mean Corpuscular HGB Conc 32.6 g/dl (31.0-36.0); Mean Corpuscular Hemoglobin 30.2 pg (27.0-33.0); Mean Corpuscular Volume 92.6 fL (80.0-98.0); NRBC Abs Auto 0.000 X10*3/uL (0.0-0.012); NRBC Pct Auto 0.0 /100WBC (0.0-0.2); Platelet Count 237 X10*3/uL (160-400); Red Blood Count 4.73 X10*6/uL (4.60-5.80); White Blood Count 5.9 X10*3/uL (4.8-10.8)
[2025-03-02 14:09] LABS: Hemoglobin A1C 131.4489 umol/L; Total Hemoglobin (HGBA1C) 3744.2824 umol/L
[2025-03-02 14:10] LABS: B Type Natriuretic Peptide < 10 pg/mL (<100)
[2025-03-02 14:16] LABS: Alanine Aminotransferase 32 U/L (0-40); Albumin Level 4.6 g/dL (3.5-5.0); Alkaline Phosphatase 62 U/L (39-117); Anion Gap 11 (12-20); Aspartate Amino Transferase 37 U/L (5-37); Blood Urea Nitrogen 6 mg/dL (9-16); Calcium 9.2 mg/dL (8.4-10.2); Carbon Dioxide 29 mmol/L (22-29); Chloride 104 mmol/L (96-108); Cholesterol 144 mg/dL (<200); Estimated Glomerular Filt Rate > 60; HDL Cholesterol 18 mg/dL (>40); Potassium 4.4 mmol/L (3.3-5.1); Sodium 140 mmol/L (135-145); Total Protein 6.6 g/dL (6.5-8.0); Triglycerides 83 mg/dL (<150)
[2025-03-02 14:31] LABS: HBS Num1 0.00 mIU/mL (0-7.99); HBc Num1 0.13 S/CO (0.00-0.79); HBsAGNum1 0.59 S/CO (0.00-0.99); Hepatitis B Surface Antigen Negative (Negative); ~HepC Num1 0.16 S/CO (0.00-0.79); ~Hepatitis B Surface Antibody NONREACTIVE (Nonreactive); ~Hepatitis C Antibody Nonreactive (Nonreactive)
[2025-03-02 14:33] LABS: Prostate Specific Antigen 0.19 ng/mL (<0.05-4.0); Vitamin B12 279 pg/mL (200-900)
[2025-03-07 00:09] LABS: CK-BB 3 % (None Detected); CK-MB 0 % (<5); CK-MM 97 % (95-100); Creatine Kinase Isoenzyme Itrp BB BAND PRESENT.; Creatine Kinase,Total,Serum 183 U/L (26-366)
== END 2025-03-02 10:31 | disposition home or self-care (01) ==
LOC: HO.HHCL 10:30
PROVIDERS: PCP Nurse Practitioner Primary Care; Visit Provider Nurse Practitioner Primary Care
DX: Z00.00 Encounter for general adult medical examination without abnormal findings (principal); Z11.59 Encounter for screening for other viral diseases; Z12.5 Encounter for screening for malignant neoplasm of prostate; R60.0 Localized edema; R39.11 Hesitancy of micturition; R31.9 Hematuria, unspecified; R23.3 Spontaneous ecchymoses; M79.604 Pain in right leg; M79.605 Pain in left leg; Z13.1 Encounter for screening for diabetes mellitus; Z13.6 Encounter for screening for cardiovascular disorders
CPT/HCPCS: 36415; 80053; 80061; 82552; 82607; 83036; 83880; 84153; 85025; 86704; 86706; 86803; 87340

== ENCOUNTER 2025-03-03 15:21 | Outpatient (REF) | payer OTHER, SELFPAY ==
--- NOTE | ~2025-03-03 | US_ITS ---
EXAMINATION: US TRIPLEX LOWER EXTREMITY, RIGHT CLINICAL INFORMATION: Right lower extremity swelling COMPARISON: None available. TECHNIQUE: Color-flow triplex imaging with spectral analysis and compression Doppler were performed on the right lower extremity. FINDINGS: Respiratory variation, normal compression and augmented flow are noted throughout the right lower extremity. The visualized common femoral vein, superficial femoral vein, profunda femoral vein, popliteal vein and midcalf peroneal and posterior tibial venous segments show no evidence of deep venous thrombosis. There is no Beebe's cyst. US/US venous duplex LE RT IMPRESSION: No evidence of deep venous thrombosis involving the right lower extremity. Electronically signed by: Nima Somers MD 03/03/2025 04:01 PM EDT
== END 2025-03-03 15:22 | disposition home or self-care (01) ==
LOC: HO.US 15:21
PROVIDERS: Visit Provider Nurse Practitioner Primary Care
DX: M79.89 Other specified soft tissue disorders (principal)
CPT/HCPCS: 93971

== ENCOUNTER → 2025-03-03 15:30 | Outpatient (BNV) | payer OTHER, SELFPAY | PROVIDERS: Visit Provider Radiology Diagnostic Radiology | DX: R22.41 Localized swelling, mass and lump, right lower limb (principal) | CPT/HCPCS: 93971 ==

== ENCOUNTER 2025-03-19 13:33 | Outpatient (AMB) | payer OTHER, SELFPAY ==
--- NOTE | 2025-03-19 13:44 | A.OFFVIS_ITS ---
Vital Signs 03/19/25 13:56 Height 6 ft Weight 226 lb BMI 30.6 BP 114/58 L Blood Pressure Location Rt brachial Position Sitting Pulse 62 Intake Visit Reasons: Inguinal hernia Intake Note: Patient referred by pcp Dr. Magana for assessment of inguinal hernia. Present for 2-3mo. Patient c/o: severe pain on rt groin area. Normal BM. Denies diarrhea, constipation. Imaging: Abdomen pelvis~ 02-11-2025 Installation And Service Technician Required: No Accompanied by: Yue mother Allergies aspirin (ASA) Adverse Reaction (Mild, Verified 02/11/25 08:16) NAUSEA aspirin Allergy (Unknown, Uncoded 02/11/25 08:16) Nausea Medication List - Last Reconciled 03/19/25 by Nimesh Peña MD clonidine HCl 0.1 mg PO BEDTIME doxycycline monohydrate 100 mg PO BID lorazepam 1 mg PO BEDTIME PRN quetiapine ER (Seroquel XR) 50 mg PO BEDTIME HPI HPI Inguinal hernia: Details: 49-year-old male referred for question of a right inguinal hernia. He describes having sharp right groin pain towards the thigh about 2 months ago. He said that usually happens when he is moving around at work. He denies any palpable mass. He denies noticing any reducible lump. He has no GI complaints. He does not notice any skin changes. He says that he still has occasional right groin pain although this has improved. [facility] Medical History Right groin pain Substance abuse Hypoglycemia Surgical History History of tonsillectomy Hx of appendectomy Previous back surgery Family History Maternal Aunt Breast CA Maternal Grandmother Colon cancer Social History Alcohol intake: current Alcohol intake frequency: holidays/special occasions only Patient Tobacco Use Status: Current everyday Tobacco user Cigarettes Per Day: 15 Review of Systems Const Denies chills and Denies fever(s) Card Denies chest pain, Denies dyspnea and Denies dyspnea on exertion Resp Denies cough, Denies dyspnea and Denies dyspnea on exertion GI Denies hematochezia and Denies change in bowel habits Denies hematuria and Denies difficulty urinating Musc Denies back pain and Denies limited range of motion Neuro Denies focal weakness and Denies convulsions Psych Denies depression and Denies mood swings Physical Exam Const General: comfortable and no acute distress Orientation/consciousness: patient oriented x3 Neck Neck: Yes no lymphadenopathy Resp Auscultation: clear to auscultation bilaterally Cardio Rhythm: regular rhythm GI Other: No palpable mass on the right groin even with Valsalva Palpation (GI): Soft to palpation, nontender and no guarding Neuro General: patient oriented x3 Assessment & Plan Assessment & Plan (1) Right groin pain: Code(s): R10.31 - Right lower quadrant pain Category: Medical Plan: He was referred to the office of the question of a hernia on the right groin. Examination does not suggest any hernia. Even with Valsalva maneuvers, I do not notice any mass. His pain maybe secondary to a muscular etiology. I did explain to him that if he notices any mass down the line, or if he has concerns with regards to worsening of his right groin pain, he should come back to the office to be re-evaluated. He is comfortable with the plan His mother was with him during the visit. Medications: Changed From doxycycline monohydrate (Monodox) 100 mg PO BID 14 caps 0RF To doxycycline monohydrate 100 mg PO BID 14 caps 0RF Coding Level of Care Code New Pt Level 3 (43939) Diagnoses Right groin pain R10.31
[2025-03-19 13:56] VITALS: BP 114/58; PULSE 62; BMI 30.6
== END 2025-03-19 14:01 | disposition home or self-care (01) ==
LOC: HO.HGS 13:34
PROVIDERS: PCP Nurse Practitioner Family; Referring Provider Nurse Practitioner Primary Care; Visit Provider Surgery
DX: R10.31 Right lower quadrant pain (principal)
CPT/HCPCS: 99203